=== PATIENT | female | born 2000 | race Two or more races ===

== ENCOUNTER 2023-04-30 11:27 | Inpatient (IN) ==
[2023-04-30] MEDS ORDERED: SODIUM CHLORIDE 0.9% 1,000 ML IV ONE ×2 (11:39→12:48)
[2023-04-30 11:53] LABS: Base Excess VBG -7.7 mEq/L; HCO3 VBG 18 mmol/L; Oxygen Saturation VBG 90.3 %; PCO2 VBG 34 mmHg (38-50); PO2 VBG 65 mmHg; pH VBG 7.32 (7.36-7.41)
[2023-04-30 11:57] LABS: Basophils # (auto) 0.08 K/uL (0.00-0.20); Basophils % (auto) 0.9 %; Eosinophils # (auto) 0.42 K/uL (0.00-0.50); Eosinophils % (auto) 4.7 %; Hemoglobin 14.7 g/dl (12.0-16.0); Immature Granulocytes # (auto) 0.05 K/uL (0.01-0.20); Immature Granulocytes % (auto) 0.6 %; Lymphocytes # (auto) 3.08 K/uL (1.20-3.40); Lymphocytes % (auto) 34.3 %; Mean Corpuscular Hemoglobin 31.3 pg (25.0-34.0); Mean Corpuscular Hgb Conc 37.7 g/dL (32.0-36.0); Mean Platelet Volume 12.8 fL (9.4-12.4); Monocytes # (auto) 0.44 K/uL (0.11-0.59); Monocytes % (auto) 4.9 %; Neutrophils # (auto) 4.91 K/uL (1.40-6.50); Neutrophils % (auto) 54.6 %; Platelet Count 263 K/uL (130-400); RDW Coefficient of Variation 12.1 % (11.5-14.5); RDW Standard Deviation 36.3 fL (36.4-46.3); White Blood Count 8.98 K/ul (4.8-10.8)
[2023-04-30 12:39] LABS: Alanine Aminotransferase 13 U/L (7-52); Albumin Globulin Ratio 1.5 (0.9-2); Albumin Level 4.3 gm/dl (3.4-5.0); Alkaline Phosphatase 76 U/L (34-104); BUN Creatinine Ratio 11.5 (10-20); Bilirubin,Total 0.4 mg/dl (0.2-1.0); Blood Urea Nitrogen 9 mg/dl (6-23); Calcium 9.2 mg/dl (8.6-10.3); Carbon Dioxide 17 mmol/L (21-32); Chloride 92 mmol/L (98-107); Creatinine Clr Calc Pharmacy 117.3 ml/min; Est GFR (African American) 124.2 ml/min; Est GFR (Non-African American) 107.2 ml/min; Globulin 2.9 gm/dl (2.5-4.0); Glucose 618 mg/dl (70-99(Fasting)); Total Protein 7.2 gm/dl (6.0-8.3)
[2023-04-30] MEDS ORDERED: NovoLIN-R INSULIN PER UNIT CHARGE IV STA (12:48)
--- NOTE | 2023-04-30 12:55 | Emergency Department Note ---
Impression & Plan Acute hyperglycemia, DKA (diabetic ketoacidosis) ED Provider Note NAME: CRISTIANO WHITE AGE: 22 SEX: F : 2000 ARRIVES VIA: Walk-In INFORMANT: Patient, ED PROVIDER(S): Alonso Rose DO CHIEF COMPLAINT: Elevated blood sugar HPI: The patient is a 22-year-old female who presented to the emergency department at the request of her primary care physician. The patient is a history of prediabetes. She had some outpatient lab work which revealed her blood sugar was very high. She was told to go to the emergency department for further evaluation. She does complain of polyuria and polydipsia. She denies having any fever or cough. She denies having any chest pain or abdominal pain. She states that she is currently on her menses. ROS: See above HPI for pertinent positives & negatives. A total of 10 systems reviewed and were otherwise negative. PAST MEDICAL HISTORY: See Below PAST SURGICAL HISTORY: See Below FAMILY HISTORY: See Below SOCIAL HISTORY: See Below HOME MEDICATIONS: See Below ALLERGIES: See Below VITALS: See Below PHYSICAL EXAMINATION: GENERAL: Patient is awake alert in no acute distress patient is resting comfortably and showing no signs of anxiety EYES: The conjunctivae are clear. The pupils are round and reactive. EARS, NOSE, MOUTH AND THROAT: The nose is without any evidence of any deformity. NECK: The neck is nontender and supple. RESPIRATORY: Normal respiratory effort is noted there is no evidence of wheezing rhonchi or rales CARDIOVASCULAR: Regular rate and rhythm noted there no murmurs rubs or gallops normal S1 normal S2. GASTROINTESTINAL: The abdomen is soft. Abdomen is nontender. MUSCULOSKELETAL/EXTREMITIES: There is no evidence of gross deformity full range of motion is noted in the hips and shoulders. SKIN: There is no obvious evidence of any rash. There are no petechiae, pallor or cyanosis noted. NEUROLOGIC: Patient is awake alert and oriented x3 MEDICAL DECISION MAKING: The patient is a 22-year-old female who is a history of borderline diabetes who presented to the emergency department because of abnormal labs. Her abnormal labs were reviewed she had a very elevated triglyceride as well as an elevated hemoglobin A1c. Blood sugar was elevated in the emergency department today. She does have an anion gap with a slight acidosis. She was treated with IV fluids and IV insulin. She was reevaluated multiple times. I discussed the patient's laboratory results with her. She does not have a history of taking any medications for diabetes. She does not take any medication for high triglycerides. Her condition improved after IV fluids and IV insulin. I discussed her condition [facility] Given that she has no set up follow-up and has no history of diabetes medications I feel she may be a better candidate for inpatient management. Triage Nursing notes reviewed. Prior medical records reviewed. The patient's labs for the [employer] system reviewed. Vital Signs: reviewed and remarkable for no significant abnormalities Differential diagnosis: Infection, dehydration, metabolic abnormality, hypo/hyperglycemia, electrolyte disturbance, anemia, hypoxia, cardiac sources, intracerebral event, toxicologic, neurologic, as well as other pathologies. ER treatment provided: See below Diagnostics interpreted by me: ECG: none Cardiac Monitoring: An order was placed for continuous cardiac monitoring. The monitor shows a rate of 88 bpm with sinus rhythm. Laboratory studies: As stated above and show below. Imaging studies: See below. Consultation(s): I discussed this case with Michelle who is [facility]. Past Med/Surg History Medical History Pre-diabetes Per patient diagnosed at a young age No significant medical problems Surgical History History of tonsillectomy Family History Denies family history of Ovarian cancer Breast cancer Colorectal cancer Social History Smoking Status: Never smoker Do You Dip or Chew Tobacco: No; Preferred Language: Icelandic Feels Safe at Home: Yes Allergies Allergies Allergy/AdvReac Type Severity Reaction Status Date / Time No Known Allergies Allergy Verified 10/11/20 14:45 Results & Data (ED) Vital Signs Vital Signs - 24 hr 04/30/23 11:28 04/30/23 12:45 04/30/23 12:49 Temperature 36.5 C Temperature Source Temporal Artery Scan Pulse Rate 85 76 Pulse Rate [Left Finger] 78 Pulse Rhythm [Left Finger] Regular Pulse Strength [Left Finger] Normal Respiratory Rate 20 18 Respiratory Effort / Characteristics Non-Labored Spontaneous Respiratory Depth Normal Respiratory Pattern Regular Blood Pressure 163/93 H Blood Pressure [Right Arm] 135/79 Blood Pressure Mean 116 Blood Pressure Mean [Right Arm] 97 Blood Pressure Position [Right Arm] Sitting Pulse Oximetry 97 98 Oxygen Delivery Method Room Air Sepsis Recent Fever Within 48 Hours No Sepsis New/Unexplained Change in Mental Status No Sepsis Action Taken by Nursing No Action Required 04/30/23 15:21 Temperature Temperature Source Pulse Rate Pulse Rate [Left Finger] 88 Pulse Rhythm [Left Finger] Pulse Strength [Left Finger] Respiratory Rate 16 Respiratory Effort / Characteristics Non-Labored Respiratory Depth Normal Respiratory Pattern Blood Pressure Blood Pressure [Right Arm] 118/74 Blood Pressure Mean Blood Pressure Mean [Right Arm] 88 Blood Pressure Position [Right Arm] Pulse Oximetry 98 Oxygen Delivery Method Room Air Sepsis Recent Fever Within 48 Hours Sepsis New/Unexplained Change in Mental Status Sepsis Action Taken by [facility] Medications Current Medication List: was personally reviewed by me Laboratory Data Attestation: I reviewed the patient's lab results. 04/30/23 11:37 04/30/23 14:12 Lab Results 04/30/23 04/30/23 04/30/23 Range/Units 11:37 13:00 13:53 WBC 8.98 (4.8-10.8) K/ul RBC 4.70 (4.20-5.40) M/uL Hgb 14.7 (12.0-16.0) g/dl Hct 39.0 (37.0-47.0) % MCV 83.0 (80.0-100.0) fL MCH 31.3 (25.0-34.0) pg MCHC 37.7 H (32.0-36.0) g/dL RDW Std Deviation 36.3 L (36.4-46.3) fL RDW Coeff of Robert 12.1 (11.5-14.5) % Plt Count 263 (130-400) K/uL MPV 12.8 H (9.4-12.4) fL Immature Gran % (Auto) 0.6 % Neut % (Auto) 54.6 % Lymph % (Auto) 34.3 % Blaine % (Auto) 4.9 % Eos % (Auto) 4.7 % Baso % (Auto) 0.9 % Neut # (Auto) 4.91 (1.40-6.50) K/uL Lymph # (Auto) 3.08 (1.20-3.40) K/uL Blaine # (Auto) 0.44 (0.11-0.59) K/uL Eos # (Auto) 0.42 (0.00-0.50) K/uL Baso # (Auto) 0.08 (0.00-0.20) K/uL Immature Gran # (Auto) 0.05 (0.01-0.20) K/uL VBG pH 7.32 L (7.36-7.41) VBG pCO2 34 L (38-50) mmHg VBG pO2 65 mmHg VBG HCO3 18 mmol/L VBG O2 Saturation 90.3 % VBG Base Excess -7.7 mEq/L Sodium TNP 126 L Potassium TNP TNP Chloride 92 L (98-107) mmol/L Carbon Dioxide 17 L (21-32) mmol/L Anion Gap TNP BUN 9 (6-23) mg/dl Creatinine 0.78 (0.6-1.2) mg/dl Est Cr Clr Drug Dosing 117.3 ml/min Est GFR ( Amer) 124.2 ml/min Est GFR (Non-Af Amer) 107.2 ml/min BUN/Creatinine Ratio 11.5 (10-20) Glucose 618 H* (70-99(Fasting)) mg/dl POC Glucose 295 H (70-99) mg/dl Calcium 9.2 (8.6-10.3) mg/dl Magnesium TNP TNP Total Bilirubin 0.4 (0.2-1.0) mg/dl AST TNP TNP ALT 13 (7-52) U/L Alkaline Phosphatase 76 (34-104) U/L Total Protein 7.2 (6.0-8.3) gm/dl Albumin 4.3 (3.4-5.0) gm/dl Globulin 2.9 (2.5-4.0) gm/dl Albumin/Globulin Ratio 1.5 (0.9-2) HCG, Qual Negative (Negative) 04/30/23 Range/Units 14:12 WBC (4.8-10.8) K/ul RBC (4.20-5.40) M/uL Hgb (12.0-16.0) g/dl Hct (37.0-47.0) % MCV (80.0-100.0) fL MCH (25.0-34.0) pg MCHC (32.0-36.0) g/dL RDW Std Deviation (36.4-46.3) fL RDW Coeff of Robert (11.5-14.5) % Plt Count (130-400) K/uL MPV (9.4-12.4) fL Immature Gran % (Auto) % Neut % (Auto) % Lymph % (Auto) % Blaine % (Auto) % Eos % (Auto) % Baso % (Auto) % Neut # (Auto) (1.40-6.50) K/uL Lymph # (Auto) (1.20-3.40) K/uL Blaine # (Auto) (0.11-0.59) K/uL Eos # (Auto) (0.00-0.50) K/uL Baso # (Auto) (0.00-0.20) K/uL Immature Gran # (Auto) (0.01-0.20) K/uL VBG pH (7.36-7.41) VBG pCO2 (38-50) mmHg VBG pO2 mmHg VBG HCO3 mmol/L VBG O2 Saturation % VBG Base Excess mEq/L Sodium Potassium 4.1 Chloride (98-107) mmol/L Carbon Dioxide (21-32) mmol/L Anion Gap BUN (6-23) mg/dl Creatinine (0.6-1.2) mg/dl Est Cr Clr Drug Dosing ml/min Est GFR ( Amer) ml/min Est GFR (Non-Af Amer) ml/min BUN/Creatinine Ratio (10-20) Glucose (70-99(Fasting)) mg/dl POC Glucose (70-99) mg/dl Calcium (8.6-10.3) mg/dl Magnesium 1.7 Total Bilirubin (0.2-1.0) mg/dl AST 16 ALT (7-52) U/L Alkaline Phosphatase (34-104) U/L Total Protein (6.0-8.3) gm/dl Albumin (3.4-5.0) gm/dl Globulin (2.5-4.0) gm/dl Albumin/Globulin Ratio (0.9-2) HCG, Qual (Negative) Administered Medications Discontinued Medications Sodium Chloride (Nss) 1,000 mls @ 999 mls/hr IV .Q1H1M ONE Stop: 04/30/23 12:39 Last Infusion: 04/30/23 12:46 Dose: Infused Documented By: Admin: 04/30/23 11:45 Dose: 999 mls/hr Documented By: DAYSI Sodium Chloride (Nss) 1,000 mls @ 999 mls/hr IV .Q1H1M ONE Stop: 04/30/23 13:48 Last Infusion: 04/30/23 15:52 Dose: Infused Documented By: Admin: 04/30/23 12:59 Dose: 999 mls/hr Documented By: RAVI Insulin Human Regular (Novolin-R Insulin Per Unit Charge) 6 units IV NOW STA Stop: 04/30/23 12:49 Last Admin: 04/30/23 12:57 Dose: 6 units Documented By: RAVI Co-signed By: SERGIO Discharge Plan Visit Data Chief Complaint: Hyperglycemia Stated Complaint: HYPERGLYCEMIA ED Provider: Alonso Rose Discharge Problem: Acute hyperglycemia, DKA (diabetic ketoacidosis) Patient Disposition: Being Evaluated by Hospitalist Forms Stand Alone Forms: [facility] Referrals Referrals: PCP,NO [Primary Care Provider] - Discharge Problem: DKA (diabetic ketoacidosis) Qualifiers: Diabetes mellitus type: type 1 Diabetes mellitus complication detail: without coma Qualified Code(s): E10.10 - Type 1 diabetes mellitus with ketoacidosis without coma
[2023-04-30 13:15] LABS: Pregnancy Test, Serum Negative (Negative)
[2023-04-30 13:44] LABS: Sodium 126 mmol/L (136-145)
[2023-04-30 14:49] LABS: Magnesium 1.7 mg/dl (1.7-2.4); Potassium 4.1 mmol/L (3.5-5.1)
[2023-04-30] MEDS ORDERED: PHARMACY GLYCEMIC MGMT CONSULT PRN (16:39)
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
[2023-04-30] MEDS ORDERED: NSS + 20MEQ KCL 20 MEQ/1,000 ML BAG IV SCH (17:45)
[2023-04-30] MEDS ORDERED: ACETAMINOPHEN 325 MG TAB PO PRN (19:39)
[2023-04-30] MEDS ORDERED: CARBOHYDRATES FOR HYPOGLYCEMIA PO PRN (20:00)
[2023-04-30] MEDS ORDERED: DEXTROSE 50% 50 ML SYRINGE IV PRN (20:00)
[2023-04-30] MEDS ORDERED: GLUCAGON FOR INJ 1 MG VIAL IM PRN (20:00)
[2023-04-30] MEDS ORDERED: GLUCOSE 10 TAB/TUBE PO PRN (20:00)
[2023-04-30] MEDS ORDERED: GLUCOSE 40% GEL 15 GM TUBE PO PRN (20:00)
[2023-04-30] MEDS: ATORVASTATIN 40 MG TAB PO SCH (20:32)
[2023-04-30 20:35] LABS: Anion Gap 13 (3-11); BUN Creatinine Ratio 11.5 (10-20); Blood Urea Nitrogen 6 mg/dl (6-23); Calcium 7.7 mg/dl (8.6-10.3); Carbon Dioxide 17 mmol/L (21-32); Chloride 102 mmol/L (98-107); Creatinine Clr Calc Pharmacy 175.9 ml/min; Est GFR (African American) > 150.0 ml/min; Est GFR (Non-African American) 134.7 ml/min; Glucose 234 mg/dl (70-99(Fasting)); Lipase 19 U/L (11-82); Sodium 132 mmol/L (136-145)
--- OUTSIDE RECORDS SUMMARY | 2023-04-30 20:53 | External Medical Summary ---
Author Name Unknown Address Unknown Organization [id number]:[facility] [place] [address] [place] [address] Laboratory Report Ordering Provider Test Date Status ZELALEM REED 04/29/2023 14:06:01 Final Observation Date Value Abnormality Reference (Units ) Status TSH 04/29/2023 14:06:01 1.86 0.27-4.20 (uIU/mL) Final Performing Location [facility] [place] [address] [address]
--- OUTSIDE RECORDS SUMMARY | 2023-04-30 20:53 | External Medical Summary ---
Author Name Unknown Address Unknown Organization [id number]:[facility]ORY [facility] [place] - [address] [place], [place] [address] Laboratory Report Ordering Provider Test Date Status FAM REEDFilomena 04/29/2023 14:06:01 Final Observation Date Value Abnormality Reference (Units ) Status LDL, (direct) 04/29/2023 14:06:01 160 Above high satya l <=129 (mg/dL) Final LDL Cholesterol Reference Ra nges (mg/dL):
<70 Target level for high risk ASCVD patient
<100 Optimal for general population
100-129 Near optimal for general population
130-159 Borderline high
160-189 High
>=190 Very high Performing Location LABORATORY [facility] - [address] [place], [place] [address]
--- OUTSIDE RECORDS SUMMARY | 2023-04-30 20:53 | External Medical Summary ---
Author Name Unknown Address Unknown Organization [id number]:[facility] [place] - [address] [facility] [address] Laboratory Report Ordering Provider Test Date Status FAM REEDFilomena 04/29/2023 14:06:01 Final Observation Date Value Abnormality Reference (Units ) Status HbA1C 04/29/2023 14:06:01 17.0 Above high normal 4. 0-5.6 (%) Final The use of HbA1c to monitor glycemic status is based on normal hemoglobin and HbA composition. This test should not be used in patients with abnormal hemoglobin that affects the half life of the red blood cell or the in vivo glycation rates. Glucose, estimated average 04/29/2023 14:06:01 441 Above high normal <126 (mg/dL) Pasquale noland Performing Location [facility] [place] - [address] [facility] [address]
--- OUTSIDE RECORDS SUMMARY | 2023-04-30 20:53 | External Medical Summary ---
Author Name Unknown Address Unknown Organization [id number]:[facility]ORY [facility] – [place] - [address] [place] [address] Laboratory Report Ordering Provider Test Date Status KATIUSKA SALDIVAR 04/29/2023 14:06:01 Final Observation Date Value Abnormality Reference (Units ) Status MYCODE SPECIMEN-LAV 04/29/2023 14:06:01 Freezing of extracted DNA, whole blood and/or serum. Final Performing Location LABORATORY [facility] [place] - [address] [facility] [address]
--- OUTSIDE RECORDS SUMMARY | 2023-04-30 20:53 | External Medical Summary | Summary of Care ---
Author Name Unknown Organization [facility] Address [address] [place] [address] Phone [phone] Care Team Providers Care Sterile Proc Tech Name Role Phone Yang Shah MD Primary Care Provider + Reason for Referral * Evaluate & Treat - Unlimited Visits (Within 10 days (routine)) - Pending Review Specialty Diagnoses / Procedures Referred By Jorden blake Referred To Contact Physical Therapy / Physical Medicine And Rehab Diagnoses Chronic back pain, unspecified back location, unspecified back pain laterality History of pelvic fracture History of tibial fracture History of vertebral fracture Yang Shah MD [address] [place] [address] Referral ID Status Reason Start Date Expiration Date Visits Requested Visits Authorized [id number] Pending Review Specialty Services Required 11/02/[phone] Question Answer Referral Priority Within 10 days (routine) Reason for Visit * Reason Onset Date Comments Referral 11/02/2022 Encounter Details Date Type Department Care Team Description 11/02/2022 Telephone [facility] [employer] [address] [place] [address] Yang Shah MD [address] [place] [address] Referral Allergies No known active allergiesdocumented as of this encounter (statuses as of 11/02/2022) Medications No known medicationsdocumented as of this encounter (statuses as of 11/02/2022) Active Problems Problem Noted Date Thyroid nodule 03/13/2022 History of tibial fracture 03/13/2022 History of pelvic fracture 03/13/2022 History of vertebral fracture 03/13/2022 Overview: T9 Fatty liver 03/13/2022 Recurrent major depressive disorder 05/31 Anxiety state 06/16/2021 Chronic back pain 06/16/2021 History of 2019 novel coronavirus diseas e (COVID-19) 05/27/2021 Menstruation, irregular 01/10/2020 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 documented as of this encounter (statuses as of 11/02/2022) Resolved Problems Problem Noted Date Resolved Date Food insecurity 01/06/2021 03/13/2022 Overview: Per [facility] Protocol Routine child health exam 05/02/20132018 ADVANCE DIRECTIVE INFORMATION 08/07/2010 Overview: Not applicable (under age of 18) documented as of this encounter (statuses as of 11/02/2022) Immunizations Name Administration Dates Next Due DTaP - Dipth/Tet/Acell Pertussis 004,08/18/2000,1999,10/14,1999 HIB 3 dose (Pedvax) 08/18/2000,1999,1999 HPV Vaccine, 4-Valent 04/01/2012,09/09/2011,07/31 Hepatitis B, 0-19 yrs 08/18/2000,1999,07/02 IPV - Polio Virus Vaccine (Inact) 2004,03/03/2000,1999,07/23 MMR - Measles/Mumps/Rubella Vaccine 01/21/2004,0 06/09/2000 Meningococcal Conjugate Vacc ine (Menactra/Menveo) 07/18/2015,08/28/2010 Pneumococcal Conjugate Vacci ne, 7 Valent 03/03/2000 Seasonal Influenza Intranasal 06/28/2014, 013 Seasonal Influenza, Quadriva lent, No Preserve, IM 04/23/2015 Seasonal Influenza, Split, I IV3, With Preserve, Inj 06/15/2012 TDAP (age 11 and older)(Adacel) 08/28/2010 Varicella Vaccine (Chicken Pox) 12/07/2007,06/09 documented as of this encounter Social History Tobacco Use Types Packs/Day Years Used Date Smoking Tobacco: Never Smokeless Tobacco: Never Alcohol Use Standard Drinks/Week Comments No 0 (1 standard drink = 0.6 oz pur e alcohol) Food Insecurity Answer Date Recorded Within the past 12 months, y ou worried that your food would run out before you got money to buy more. Sometimes true 2018 Within the past 12 months, t he food you bought just didn't last and you didn't have money to get more. Never true Sex Assigned at Date Recorded Not on file Job Start Date Occupation Industry Not on file Not on file Not on file documented as of this encounter Miscellaneous Notes * Telephone Encounter - HALEIGH Bui - 11/02/2022 6:36 PM EDT Printed and faxed * Telephone Encounter - Yang Shah MD - 11/02/2022 6:32 PM EDT PT referral signed. Yang Shah MD * Telephone Encounter - HALEIGH Contreras - 11/02/2022 4:20 PM EDT Has the patient been seen for this problem? (Y/N)?: Yes If No, an appt needs to be scheduled before a referral will be placed (exception: proceed with referral request if referral request is for a yearly routine appointment with speciality) Patient Name: Chace Hsu Patient Primary care provider: Yang Shah MD Does this need to be an insurance referral (Y/N)?: No If Yes, does the insurance referral need to be placed into the [facility] system? Name of preferred specialist: [facility] Type of specialist: Physical therapy Location of specialist: [facility] [address] Specialist's Phone #: [phone] Specialist's Fax #: [phone] Reason for visit: Therapy session Date of visit: documented in this encounter Plan of Treatment Upcoming Encounters Date Type Specialty Care Team Description 11/05/2022 Telemedicine Family Medicine Yang Shah MD [address] [place] [address] Scheduled Referrals Name Type Priority Associated Diagnoses Orde r Schedule PHYSICAL THERAPY REFERRAL OP Referral Within 10 days (routine) Chronic back pain, unspecified back location, unspecified back pain laterality History of pelvic fracture History of tibial fracture History of vertebral fracture Ordered: 11/02/2022 Health Maintenance Due Date Last Done Comments COVID-19 Vaccine (#1) 1999 HIV Screening 2014 Hepatitis C Screening 2017 Gonorrhea / Chlamydia Screen 10/08/2018 10/08/2017 Pap Smear 2020 Depression Screening, Annual for Pts 12 and Over 05/19/2020 05/19/2019 DTaP,Tdap,and Td Vaccines (7 - Td or Tdap) 08/28/2020 08/28/2010, 01/21/2004, 08/18/2000, Additional history exists Influenza Vaccine (FLU shot) (Season Ended) 2023 04/23/2015, 06/28/2014, 06/28/2014, Additional history exists Hepatitis B Completed 08/18/2000, 09/28, 1999 GARDASIL-HPV IMMUNIZATION SERIES Completed 04/01/2012, 09/09/2011, 08/28/2010 MENINGOCOCCAL (MENACTRA/MENVEO) Completed 07/18/2015, 08/28/2010 Pneumococcal Vaccine: Pediatrics (0 to 5 Years) and At-Risk Patients (6 to 64 Years) Aged Out No longer eligible based on patient's age to complete this topic documented as of this encounter Medical Devices Not on filedocumented as of this encounter Visit Diagnoses Diagnosis Chronic back pain, unspecified back location, unspecified back pain laterality- Primary History of pelvic fracture Personal history of traumatic fracture History of tibial fracture Personal history of traumatic fracture History of vertebral fracture Personal history of traumatic fracture documented in this encounter Care Teams Sterile Proc Tech Relationship Specialty Start Date End Date Yang Shah MD [address] [facility] [place] [address] PCP - General Family Medicine 03/27/19 documented as of this encounter
--- OUTSIDE RECORDS SUMMARY | 2023-04-30 20:53 | External Medical Summary | Summary of Care ---
Author Name Unknown Organization [facility] Address [address] [place] [address] Phone [phone] Care Team Providers Care Consulting Practice Manager Name Role Phone Yang Shah MD Primary Care Provider + Reason for Visit * Reason Comments Follow Up Encounter Details Date Type Department Care Team Description 11/05/2022 [facility] [place] [address] [place] [address] Yang Shah MD [address] [place] [address] Follow-up examination*; Chronic back pain, unspecified back location, unspecified back pain laterality; History of vertebral fracture; History of tibial fracture; History of pelvic fracture; Thyroid nodule; Fatty liver; Recurrent major depressive disorder, remission status unspecified (HCC); Anxiety state Allergies No known active allergiesdocumented as of this encounter (statuses as of 11/05/2022) Medications No known medicationsdocumented as of this encounter (statuses as of 11/05/2022) Active Problems Problem Noted Date Thyroid nodule [...] as of this encounter (statuses as of 11/05/2022) Resolved Problems Problem Noted Date Resolved Date Food insecurity 01/06/2021 03/13/2022 Overview: Per [facility] Protocol Routine child health exam 05/02/20132018 ADVANCE DIRECTIVE INFORMATION 08/07/2010 Overview: Not applicable (under age of 18) documented as of this encounter (statuses as of 11/05/2022) Immunizations Name Administration Dates Next Due DTaP [...] on file documented as of this encounter Progress Notes * Yang Shah MD - 11/05/2022 5:33 PM EDT FAMILY MEDICINE VIDEO TELEMEDICINE VISIT [facility] - FAMILY MEDICINE Date: 11/05/2022 Time: 5:33 PM Patient: Chace Hsu : 2000 CHIEF COMPLAINT: Chief Complaint Patient presents with Follow Up HISTORY OF PRESENT ILLNESS: Chace Hsu is a 22 year old female who was is being evaluated for f/u by video telemedicine visit. In light of the state of emergency with the Coronavirus (COVID-19) pandemic, a video telemedicine visit was opted to safely assess the patient and reduce their risk of exposure to the virus. I was in a hospital or clinic location. Patient was at home. After connecting through televideo, the patient was identified by 2 unique identifiers (name and date of ). 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 Methods to assure confidentiality were taken. Patient acknowledged consent and understanding of privacy and security of the telemedicine visit, and gave permission to have a telemedicine presenter stay in the room in order to assist with the history and to conduct theexam as needed. I informed the patient that I have reviewed their record in [facility] and presented the opportunity for them to ask any questions regarding the visit today. The patient agreed to participat e. 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 Past Medical History: Diagnosis Date Anxiety state 06/16/2021 Fatty liver 03/13/2022 History of 2019 novel coronavirus disease (COVID-19) 05/27/2021 History of pelvic fracture 03/13/2022 History of tibial fracture 03/13/2022 History of vertebral fracture 03/13/2022 T9 Menstruation, irregular 01/10/2020 Recurrent major depressive disorder (HCC) 06/16/2021 Past Surgical History: Procedure Laterality Date IR BIOPSY 06/12/2022 NONE No outpatient medications have been marked as taking for the 11/05/22 encounter (Telemedicine) with Yang Shah MD. Review of patient's allergies indicates: No Known Allergies Social History Tobacco Use Smoking status: Never Smokeless tobacco: Never Substance Use Topics Alcohol use: No Drug use: No Family History Problem Relation Age of Onset No Known Problems Mother No Known Problems Father Heart disease Grandfather (Maternal) CAD, CABG Diabetes Grandfather (Maternal) Hypertension Grandfather (Maternal) REVIEW OF SYSTEMS: Constitutional: (-) fever, chills, sweats, or weight loss Cardiovascular: (-) no chest pain, dyspnea, syncope, or palpitations Pulmonary: (-) no cough, wheezing, or shortness of breath Abdominal/GI: (-) no pain, heartburn, dysphagia, bleeding, change in bowel habits, nausea or vomiting Musculoskeletal: + arthralgia Psychiatry: + depression, anxiety, well-controlled, no SI, no HI PHYSICAL EXAMINATION: A physical examination was not performed today being this is a video telemedicine visit. ASSESSMENT/PLAN: Chace Hsu is a 22 year old female, who is being evaluated for f/u via video telemedicine visit. -Patient with medical history as noted, doing well, continue with PT, f/u with specialists as scheduled -Encouraged healthy lifestyle, low fat diet, low sugar diet, and exercise -Pt was advised to ask questions during their visit today, pt's questions answered, pt understands and is agreeable with plan of care -Visit Disposition: Routine follow-up -Return in Apr 2023 for f/u, return PRN Follow-up examination (Primary) Chronic back pain, unspecified back location, unspecified back pain laterality History of vertebral fracture History of tibial fracture History of pelvic fracture Thyroid nodule Fatty liver Recurrent major depressive disorder, remission status unspecified (HCC) Anxiety state Follow Up: Return in about 6 months (around 05/07/2023), or if symptoms worsen or fail to improve, for Follow-up. | For: Follow-up | Check-out note: F/u in 5-6 months, around , for when she has break from school. The total duration of this video telemedicine visit was 10 minutes. Yang Shah MD [facility] [address] [place] [address] documented in this encounter Plan of Treatment Health Maintenance Due Date Last Done Comments [...] as of this encounter Visit Diagnoses Diagnosis Follow-up examination- Primary Unspecified follow-up examination Chronic back pain, unspecified back location, unspecified back pain laterality History of vertebral fracture Personal history of traumatic fracture History of tibial fracture Personal history of traumatic fracture History of pelvic fracture Personal history of traumatic fracture Thyroid nodule Nontoxic uninodular goiter Fatty liver Other chronic nonalcoholic liver disease Recurrent major depressive disorder, remission status unspecified (HCC) Anxiety state Anxiety state, unspecified documented in this encounter Care Teams Consulting Practice Manager Relationship Specialty Start Date End Date Yang Shah MD [address] [place] [address] PCP - General Family Medicine 03/27/19 documented as of this encounter"
--- OUTSIDE RECORDS SUMMARY | 2023-04-30 20:53 | External Medical Summary ---
Author Name Unknown Address Unknown Organization [id number]:[facility] [place] [place] [address] Laboratory Report Ordering Provider Test Date Status ZELALEM REED 04/29/2023 14:06:01 Final Observation Date Value Abnormality Reference (Units ) Status WBC, Total 04/29/2023 14:06:01 9.78 4.00-10.8 0 (K/uL) Final RBC 04/29/2023 14:06:01 4.84 3.85-5.15 (M/uL) Final Hemoglobin 04/29/2023 14:06:01 15.4 Above high normal 1 2.0-15.3 (g/dL) Final HCT 04/29/2023 14:06:01 42.0 36.0-45.2 (%) Final MCV 04/29/2023 14:06:01 86.8 81.5-97.5 (fL) Final MCH 04/29/2023 14:06:01 31.8 27.0-34.0 (pg) Final MCHC 04/29/2023 14:06:01 36.7 32.0-36.0 (g/dL) Final RDW 04/29/2023 14:06:01 12.6 11.5-15.5 (%) Final Platelets 04/29/2023 14:06:01 286 140-400 (K /uL) Final MPV 04/29/2023 14:06:01 12.5 6.6-11.1 ( fL) Final Performing Location [facility] [place] [address]
--- OUTSIDE RECORDS SUMMARY | 2023-04-30 20:53 | External Medical Summary ---
Author Name Unknown Address Unknown Organization [id number]:[facility] [place] [address] Laboratory Report Ordering Provider Test Date Status DEREKZELALEM Pastor 04/29/2023 14:06:01 Final Observation Date Value Abnormality Reference (Units ) Status Nucleated erythrocytes/100 leukocytes [Ratio] in Blood by Automated count 04/29/2023 14:06:01 Final Performing Location [facility] [place] [address]
--- OUTSIDE RECORDS SUMMARY | 2023-04-30 20:53 | External Medical Summary ---
Author Name Unknown Address Unknown Organization K01:[facility] [place] - [address] [place] [address] [place] [address] Laboratory Report Ordering Provider Test Date Status KATIUSKA SALDIVAR 04/29/2023 14:06:01 Final Observation Date Value Abnormality Reference (Units ) Status MYCODE SPECIMEN-SST 04/29/2023 14:06:01 Freezing of extracted DNA, whole blood and/or serum. Final Performing Location [facility] [place] [facility] [address] [facility] [address]
--- OUTSIDE RECORDS SUMMARY | 2023-04-30 20:53 | External Medical Summary | Summary of Care ---
Author Name Unknown Organization [facility] Address [address] [place] [address] Phone [phone] Care Team Providers Care Acoustic Intelligence Specialist Name Role Phone Yang Shah MD Primary Care Provider + Reason for Visit * Reason Comments Follow Up Encounter Details Date Type Department Care Team (Late st Contact Info) Description 04/28/2023 3:20 PM [facility], [place] [address] [place] [address] Yang Shah MD [address] [place] [address] Follow-up examination*; Loss of weight; Polydipsia; Dry mouth; Polyuria; Chronic back pain, unspecified back location, unspecified back pain laterality; History of vertebral fracture; History of pelvic fracture; History of tibial fracture; Thyroid nodule; Fatty liver; Menstruation, irregular; Recurrent major depressive disorder, remission status unspecified (HCC); Anxiety state; Abnormal glucose Allergies No known active allergiesdocumented as of this encounter (statuses as of 04/28/2023) Medications No known medicationsdocumented as of this encounter (statuses as of 04/28/2023) Active Problems Problem Noted Date Diagnosed Date Abnormal glucose 04/28/2023 Thyroid nodule 03/13/2022 History of tibial fracture 03/13/2022 History of pelvic fracture 03/13/2022 History of vertebral fracture 03/13/2022 Overview: T9 Fatty liver 03/13/2022 Recurrent major depressive disorder 06/16/2021 Anxiety state 06/16/2021 Chronic back pain 06/16/2021 History of 2019 novel coronavirus disease (COVID -19) 05/27/2021 Menstruation, irregular 01/10/2020 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 documented as of this encounter (statuses as of 04/28/2023) Resolved Problems Problem Noted Date Diagnosed Date Resolved Date Food insecurity 01/06/2021 03/13/2022 Overview: Per [facility] Protocol Routine child health exam 05/02/2013 ADVANCE DIRECTIVE INFORMATION 08/07/2010 03/13/2022 Overview: Not applicable (under age of 18) documented as of this encounter (statuses as of 04/28/2023) Immunizations Name Administration Dates Next Due DTaP Dipth/Tet/Acell Pertussis (Infanrix), Peds 01/21/2004,08/18/2000,1999,10/14,1999 HIB PRP-OMP, 3 dose (Pedvax) 08/18/2000,10/15/19 00,1999 HPV Vaccine, 4-Valent 04/01/2012,09/09/2011,07/31 Hepatitis B, 0-19 [...] drink = 0.6 oz pur e alcohol) PHQ-2 Answer Date Recorded PHQ-2 Score 2 05/19/2019 Hunger Vital Sign Answer Date Recorded Worried About Running Out of Food in the Last Ye ar Sometimes true 05/19/2019 Ran Out of Food in the Last Year Never true 05/19/2019 Sex and Gender Information Value Date Recorded Sex Assigned at Not on file Gender Identity Not on file Sexual Orientation Not on file Job Start Date Occupation Industry Not on file Not on file Not on file documented as of this encounter Progress Notes * Yang Shah MD - 04/28/2023 3:44 PM EST FAMILY MEDICINE VIDEO TELEMEDICINE VISIT [facility] Date: 04/28/2023 Time: 3:44 PM Patient: Chace Hsu : 2000 CHIEF COMPLAINT: Chief Complaint Patient presents with Follow Up HISTORY OF PRESENT ILLNESS: Chcae Hsu is a 22 year old female who was is being evaluated for f/u by video telemedicine visit. I was in a hospital or clinic location. Patient was at home. After connecting through televideo, the patient was identified by 2 unique identifiers (name and date of ). 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 Methods to assure confidentiality were taken. Patient acknowledged consent and understanding of privacy and security of the telemedicine visit, and gave permission to have a telemedicine presenter stay in the room in order to assist with the history and to conduct the exam as needed. I informed the patient that I have reviewed their record in [facility] and presented the opportunity for them to ask any questions regarding the visit today. The patient agreed to participate. 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 Past Medical History: Diagnosis Date Anxiety state 06/16/2021 Fatty liver 03/13/2022 History of 2019 novel coronavirus disease (COVID-19) 05/27/2021 History of pelvic fracture 03/13/2022 History of tibial fracture 03/13/2022 History of vertebral fracture 03/13/2022 T9 Menstruation, irregular 01/10/2020 Recurrent major depressive disorder (HCC) 06/16/2021 Past Surgical History: Procedure Laterality Date IR BIOPSY 06/12/2022 No outpatient medications have been marked as taking for the 04/28/23 encounter (Telemedicine) Yang Stewart MD. Review of patient's allergies indicates: No Known Allergies Social History Tobacco Use Smoking status: Never Smokeless tobacco: Never Substance Use Topics Alcohol use: No Drug use: No Family History Problem Relation Age of Onset No Known Problems Mother No Known Problems Father Heart disease Grandfather (Maternal) CAD, CABG Diabetes Grandfather (Maternal) Hypertension Grandfather (Maternal) REVIEW OF SYSTEMS: Constitutional: + weight loss, (-) fever, chills, sweats Cardiovascular: (-) no chest pain, dyspnea, syncope, or palpitations Pulmonary: (-) no cough, wheezing, or shortness of breath Abdominal/GI: (-) no pain, heartburn, dysphagia, bleeding, change in bowel habits, nausea or vomiting Endocrine: + polyuria, polydipsia Psychiatry: (-) no depression or anxiety PHYSICAL EXAMINATION: A physical examination was not performed today being this is a video telemedicine visit. ASSESSMENT/PLAN: Chace Hsu is a 22 year old female, who is being evaluated for f/u via video telemedicine visit. -Patient with medical history as noted, concerned about her 20 pound weight loss in the past few months accompanied with polyuria, polydipsia, and dry mouth, advised checking routine labs, r/o new onset diabetes, will r/o thyroid dysfunction, will check urinary testing to r/o UTI, call if pt has new or worsening symptoms, red flag symptoms discussed, further recommendations pending results -Encouraged healthy lifestyle, low fat diet, low sugar diet, and exercise -Pt was advised to ask questions during their visit today, pt's questions answered, pt understands and is agreeable with plan of care -Visit Disposition: Routine follow-up -Return in 5 months for f/u visit, repeat labs 1-2 weeks prior to next visit, return PRN Follow-up examination (Primary) Loss of weight - CBC WITH WBC DIFFERENTIAL; Future; Expected date: 04/28/2023 - COMPREHENSIVE METABOLIC PANEL; Future; Expected date: 04/28/2023 - TSH WITH FREE T4 IF INDICATED; Future; Expected date: 04/28/2023 - HEMOGLOBIN A1C; Future; Expected date: 04/28/2023 - LIPASE; Future; Expected date: 04/28/2023 Polydipsia - CBC WITH WBC DIFFERENTIAL; Future; Expected date: 04/28/2023 - COMPREHENSIVE METABOLIC PANEL; Future; Expected date: 04/28/2023 - TSH WITH FREE T4 IF INDICATED; Future; Expected date: 04/28/2023 - HEMOGLOBIN A1C; Future; Expected date: 04/28/2023 - LIPASE; Future; Expected date: 04/28/2023 - URINALYSIS, REFLEX TO MICROSCOPIC; Future; Expected date: 04/28/2023 - CULTURE, URINE, QUANTITATIVE; Future; Expected date: 04/28/2023 Dry mouth - CBC WITH WBC DIFFERENTIAL; Future; Expected date: 04/28/2023 - COMPREHENSIVE METABOLIC PANEL; Future; Expected date: 04/28/2023 - TSH WITH FREE T4 IF INDICATED; Future; Expected date: 04/28/2023 - HEMOGLOBIN A1C; Future; Expected date: 04/28/2023 - LIPASE; Future; Expected date: 04/28/2023 Polyuria - CBC WITH WBC DIFFERENTIAL; Future; Expected date: 04/28/2023 - COMPREHENSIVE METABOLIC PANEL; Future; Expected date: 04/28/2023 - TSH WITH FREE T4 IF INDICATED; Future; Expected date: 04/28/2023 - HEMOGLOBIN A1C; Future; Expected date: 04/28/2023 - LIPASE; Future; Expected date: 04/28/2023 - URINALYSIS, REFLEX TO MICROSCOPIC; Future; Expected date: 04/28/2023 - CULTURE, URINE, QUANTITATIVE; Future; Expected date: 04/28/2023 Chronic back pain, unspecified back location, unspecified back pain laterality History of vertebral fracture History of pelvic fracture History of tibial fracture Thyroid nodule - CBC WITH WBC DIFFERENTIAL; Future; Expected date: 04/28/2023 - COMPREHENSIVE METABOLIC PANEL; Future; Expected date: 04/28/2023 - LIPID PANEL WITH DIRECT LDL IF TG IS HIGH; Future; Expected date: 04/28/2023 - TSH WITH FREE T4 IF INDICATED; Future; Expected date: 04/28/2023 Fatty liver Menstruation, irregular - CBC WITH WBC DIFFERENTIAL; Future; Expected date: 04/28/2023 - COMPREHENSIVE METABOLIC PANEL; Future; Expected date: 04/28/2023 - TSH WITH FREE T4 IF INDICATED; Future; Expected date: 04/28/2023 Recurrent major depressive disorder, remission status unspecified (HCC) - CBC WITH WBC DIFFERENTIAL; Future; Expected date: 04/28/2023 - COMPREHENSIVE METABOLIC PANEL; Future; Expected date: 04/28/2023 - TSH WITH FREE T4 IF INDICATED; Future; Expected date: 04/28/2023 Anxiety state - CBC WITH WBC DIFFERENTIAL; Future; Expected date: 04/28/2023 - COMPREHENSIVE METABOLIC PANEL; Future; Expected date: 04/28/2023 - TSH WITH FREE T4 IF INDICATED; Future; Expected date: 04/28/2023 Abnormal glucose - CBC WITH WBC DIFFERENTIAL; Future; Expected date: 04/28/2023 - COMPREHENSIVE METABOLIC PANEL; Future; Expected date: 04/28/2023 - LIPID PANEL WITH DIRECT LDL IF TG IS HIGH; Future; Expected date: 04/28/2023 - HEMOGLOBIN A1C; Future; Expected date: 04/28/2023 Follow Up: Return in about 5 months (around 09/27/2023), or if symptoms worsen or fail to improve, for Follow-up. | For: Follow-up | Check-out note: Labs when possible. The total duration of this video telemedicine visit was 9 minutes. Yang Shah MD [facility] [address] [place] [address] documented in this encounter Plan of Treatment Upcoming Encounters Date Type Department Care Team (Late st Contact Info) Description 09/27/2023 4:40 PM EDT Office Visit [facility] [address] [place] [address] Yang Shah MD [address] [place] [address] Scheduled Orders Name Type Priority Associated Diagnoses Orde r Schedule CBC WITH WBC DIFFERENTIAL Lab Routine Anxiety state Menstruation, irregular Recurrent major depressive disorder, remission status unspecified (HCC) Thyroid nodule Dry mouth Polydipsia Polyuria Loss of weight Abnormal glucose Expected: 04/28/2023 (Approximate), Expires: 04/28/2024 COMPREHENSIVE METABOLIC PANEL Lab Routine Anxiety state Menstruation, irregular Recurrent major depressive disorder, remission status unspecified (HCC) Thyroid nodule Dry mouth Polydipsia Polyuria Loss of weight Abnormal glucose Expected: 04/28/2023 (Approximate), Expires: 04/28/2024 LIPID PANEL WITH DIRECT LDL IF TG IS HIGH Lab Routine Thyroid nodule Abnormal glucose Expected: 04/28/2023, Expires: 04/28/2024 TSH WITH FREE T4 IF INDICATED Lab Routine Anxiety state Menstruation, irregular Recurrent major depressive disorder, remission status unspecified (HCC) Thyroid nodule Dry mouth Polydipsia Polyuria Loss of weight Expected: 04/28/2023 (Approximate), Expires: 04/28/2024 HEMOGLOBIN A1C Lab Routine Dry mouth Polydipsia Polyuria Loss of weight Abnormal glucose Expected: 04/28/2023 (Approximate), Expires: 04/28/2024 LIPASE Lab Routine Dry mouth Polydipsia Polyuria Loss of weight Expected: 04/28/2023 (Approximate), Expires: 04/27/2024 URINALYSIS, REFLEX TO MICROSCOPIC Lab Routine Polydipsia Polyuria Expected: 04/28/2023, Expires: 04/28/2024 CULTURE, URINE, QUANTITATIVE Lab Routine Polydipsia Polyuria Expected: 04/28/2023, Expires: 04/28/2024 Health Maintenance Due Date Last Done Comments COVID-19 Vaccine (#1) 1999 HIV Screening 2014 Hepatitis C Screening 2017 Gonorrhea / Chlamydia Screen 10/08/2018 10/08/2017 Pap Smear 2020 Depression Screening 05/19/2020 05/19/2019 DTaP,Tdap,and Td Vaccines (7 - Td or Tdap) 08/28/2020 08/28/2010, 01/21/2004, 08/18/2000, Additional history exists Influenza Vaccine (FLU shot) (#1) 2023 04/23/2015, 06/28/2014, 06/28/2014, Additional history exists [...] Diagnosis Follow-up examination- Primary Unspecified follow-up examination Loss of weight Polydipsia Dry mouth Disturbance of salivary secretion Polyuria Chronic back pain, unspecified back location, unspecified back pain laterality History of vertebral fracture Personal history of traumatic fracture History of pelvic fracture Personal history of traumatic fracture History of tibial fracture Personal history of traumatic fracture Thyroid nodule Nontoxic uninodular goiter Fatty liver Other chronic nonalcoholic liver disease Menstruation, irregular Irregular menstrual cycle Recurrent major depressive disorder, remission status unspecified (HCC) Anxiety state Anxiety state, unspecified Abnormal glucose Other abnormal glucose documented in this encounter Care Teams Acoustic Intelligence Specialist Relationship Specialty Start Date End Date Yang Shah MD [address] [place] [address] PCP - General Family Medicine 03/27/19 documented as of this encounter"
--- OUTSIDE RECORDS SUMMARY | 2023-04-30 20:53 | External Medical Summary | Summary of Care ---
Author Name Unknown Organization [facility] Address [address] [place] [address] Phone [phone] Care Team Providers Care Due Diligence Coordinator Name Role Phone Yang Shah MD Primary Care Provider + Reason for Visit * Reason Comments Outpatient Testing Encounter Details Date Type Department Care Team (Late st Contact Info) Description 04/29/2023 2:00 PM EST Laboratory Laboratory Scenery [facility] [address] [place] [id number] [facility] Lab Scenery [address] [place] [address] [employer] Other*[id number]; Anxiety state; Menstruation, irregular; Recurrent major depressive disorder, remission status unspecified (HCC); Thyroid nodule; Dry mouth; Polydipsia; Polyuria; Loss of weight; Abnormal glucose Allergies No known active allergiesdocumented as of this encounter (statuses as of 04/29/2023) Medications No known medicationsdocumented as of this encounter (statuses as of 04/29/2023) Active Problems Problem Noted Date Diagnosed Date [...] as of this encounter (statuses as of 04/29/2023) Resolved Problems Problem Noted Date Diagnosed Date Resolved Date Food insecurity 01/06/2021 03/13/2022 Overview: Per [facility] Protocol Routine child health exam 05/02/2013 ADVANCE DIRECTIVE INFORMATION 08/07/2010 03/13/2022 Overview: Not applicable (under age of 18) documented as of this encounter (statuses as of 04/29/2023) Immunizations Name Administration Dates Next Due DTaP [...] on file documented as of this encounter Plan of Treatment Upcoming Encounters Date Type Department Care Team (Late st Contact Info) Description 09/27/2023 4:40 PM EDT Office Visit [facility] [place] [address] [place] [address] Yang Shah MD [address] [place] [address] Pending Results Name Type Priority Associated Diagnoses Date /Time MYCODE INITIAL ADULT Lab Routine MyCode Research Other*[id number] 04/29/2023 2:06 PM EST CBC WITH WBC DIFFERENTIAL Lab Routine Anxiety state Menstruation, irregular Recurrent major depressive disorder, remission status unspecified (HCC) Thyroid nodule Dry mouth Polydipsia Polyuria Loss of weight Abnormal glucose 04/29/2023 2:06 PM EST COMPREHENSIVE METABOLIC PANEL Lab Routine Anxiety state Menstruation, irregular Recurrent major depressive disorder, remission status unspecified (HCC) Thyroid nodule Dry mouth Polydipsia Polyuria Loss of weight Abnormal glucose 04/29/2023 2:06 PM EST LIPID PANEL WITH DIRECT LDL IF TG IS HIGH Lab Routine Thyroid nodule Abnormal glucose 04/29/2023 2:06 PM EST TSH WITH FREE T4 IF INDICATED Lab Routine Anxiety state Menstruation, irregular Recurrent major depressive disorder, remission status unspecified (HCC) Thyroid nodule Dry mouth Polydipsia Polyuria Loss of weight 04/29/2023 2:06 PM EST HEMOGLOBIN A1C Lab Routine Dry mouth Polydipsia Polyuria Loss of weight Abnormal glucose 04/29/2023 2:06 PM EST LIPASE Lab Routine Dry mouth Polydipsia Polyuria Loss of weight 04/29/2023 2:06 PM EST MYCODE INITIAL ADULT-PINK Lab Routine MyCode Research Other*[id number] 04/29/2023 2:06 PM EST MYCODE SST1 Lab Routine MyCode Research Other*[id number] 04/29/2023 2:06 PM EST MYCODE SST2 Lab Routine MyCode Research Other*[id number] 04/29/2023 2:06 PM EST CBC Lab Routine Anxiety state Menstruation, irregular Recurrent major depressive disorder, remission status unspecified (HCC) Thyroid nodule Dry mouth Polydipsia Polyuria Loss of weight Abnormal glucose 04/29/2023 2:06 PM EST DIFFERENTIAL, AUTOMATED Lab Routine Anxiety state Menstruation, irregular Recurrent major depressive disorder, remission status unspecified (HCC) Thyroid nodule Dry mouth Polydipsia Polyuria Loss of weight Abnormal glucose 04/29/2023 2:06 PM EST Health Maintenance Due Date Last Done Comments [...] as of this encounter Visit Diagnoses Diagnosis MyCode Research Other*[id number] Anxiety state Anxiety state, unspecified Menstruation, irregular Irregular menstrual cycle Recurrent major depressive disorder, remission status unspecified (HCC) Thyroid nodule Nontoxic uninodular goiter Dry mouth Disturbance of salivary secretion Polydipsia Polyuria Loss of weight Abnormal glucose Other abnormal glucose documented in this encounter Care Teams Due Diligence Coordinator Relationship Specialty Start Date End Date Yang Shah MD [address] [place] [address] PCP - General Family Medicine 03/27/19 documented as of this encounter
--- OUTSIDE RECORDS SUMMARY | 2023-04-30 20:53 | External Medical Summary ---
Author Name Unknown Address Unknown Organization K01:[facility] [place] - [address] [facility] [address] Laboratory Report Ordering Provider Test Date Status ZELALEM REED 04/29/2023 14:06:01 Final Observation Date Value Abnormality Reference (Units ) Status BUN 04/29/2023 14:06:01 8 6-20 (mg/dL) Final Creatinine 04/29/2023 14:06:01 0.5 0.5-1.0 (mg/dL) Final Glomerular filtration rate/1.73 sq M.predicted [Volume Rate/Area] in Serum, Plasma or Blood by Creatinine-based formula (CKD-EPI) 04/29/2023 14:06:01 >90 >=60 (mL/min) Final eGFR is calculated based on the CKD-EPI 2020 equation SODIUM 04/29/2023 14:06:01 127 Below low normal 135 -146 (mmol/L) Final Potassium 04/29/2023 14:06:01 4.2 3.5-5.1 (m mol/L) Final Cl 04/29/2023 14:06:01 88 Below low normal 98- 107 (mmol/L) Final CO2 04/29/2023 14:06:01 20 Below low normal 22- 32 (mmol/L) Final Anion gap 04/29/2023 14:06:01 19 Above high normal 7- 15 (mmol/L) Final Glucose 04/29/2023 14:06:01 623 Above up per panic limits 70-120 (mg/dL) Final Albumin 04/29/2023 14:06:01 4.5 3.8-5.0 (g /dL) Final AST (Aspartate aminotransferase) 04/29/2023 14:06:01 16 10-35 (U/L) Fin al Lipemia removed by ultracent rifugation. Alk Phos 04/29/2023 14:06:01 89 35-130 (U/ L) Final Bilirubin, Total 04/29/2023 14:06:01 <0.2 <=1 .2 (mg/dL) Final Calcium 04/29/2023 14:06:01 9.3 8.4-10.2 ( mg/dL) Final Protein 04/29/2023 14:06:01 6.9 6.0-8.3 (g /dL) Final ALT (Alanine aminotransferase) 04/29/2023 14:06:01 18 10-35 (U/L) Final Lipemia removed by ultracent rifugation. Performing Location [facility] [place] - [address] [facility] [address]
--- OUTSIDE RECORDS SUMMARY | 2023-04-30 20:53 | External Medical Summary ---
Author Name Unknown Address Unknown Organization K09:[facility] [place] [address] Laboratory Report Ordering Provider Test Date Status ZELALEM REED 04/29/2023 14:06:01 Final Observation Date Value Abnormality Reference (Units ) Status SYNC LEUKOCYTES IN BLOOD BY AUTOMATED COUNT 04/29/2023 14:06:01 9.78 4.00-10.80 (K/uL) Final Segs 04/29/2023 14:06:01 44.0 40.0-75.0 (%) Final Lymphs % 04/29/2023 14:06:01 40.6 18.0-42.0 (%) Final Monos 04/29/2023 14:06:01 9.0 1.0-11.0 (%) Final Eosinophils 04/29/2023 14:06:01 5.3 0.0-6.0 (%) Final Basos 04/29/2023 14:06:01 1.1 0.0-2.0 (%) Final Absolute Segs 04/29/2023 14:06:01 4.30 1.80-7.70 (K/uL) Final Lymphs, absolute 04/29/2023 14:06:01 3.97 1.00-4.80 (K/ul) Final Monos, Abs 04/29/2023 14:06:01 0.88 0.00-1.10 (K/uL) Final Eos, Abs 04/29/2023 14:06:01 0.52 0.00-0.70 (K/uL) Final Basos, Abs 04/29/2023 14:06:01 0.11 0.00-0.20 (K/uL) Final Performing Location [facility] [place] [address]
--- OUTSIDE RECORDS SUMMARY | 2023-04-30 20:53 | External Medical Summary | Summary of Care ---
Author Name Unknown Organization [facility] Address [address] [place] [address] Phone [phone] Care Team Providers Care Loans Officer Name Role Phone Yang Shah MD Primary Care Provider + Encounter Details Date Type Department Care Team Description 11/30/2022 Orders Only Outcomes Research Department [address] [place], [place] [id number] Tere Lazar CHRA [employer] Other*[id number] Allergies No known active allergiesdocumented as of this encounter (statuses as of 11/30/2022) Medications No known medicationsdocumented as of this encounter (statuses as of 11/30/2022) Active Problems Problem Noted Date Thyroid nodule [...] as of this encounter (statuses as of 11/30/2022) Resolved Problems Problem Noted Date Resolved Date Food insecurity 01/06/2021 03/13/2022 Overview: Per [facility] Protocol Routine child health exam 05/02/20132018 ADVANCE DIRECTIVE INFORMATION 08/07/2010 Overview: Not applicable (under age of 18) documented as of this encounter (statuses as of 11/30/2022) Immunizations Name Administration Dates Next Due DTaP [...] Encounters Date Type Specialty Care Team Description 04/26/2023 Office Visit Family Medicine Yang Shah MD [address] [place] [address] Scheduled Orders Name Type Priority Associated Diagnoses Orde r Schedule MYCODE INITIAL ADULT Lab Routine MyCode Research Other*[id number] Expected: 11/30/2022 (Approximate), Expires: 12/20/2023 Health Maintenance Due Date Last Done Comments [...] this encounter Visit Diagnoses Diagnosis MyCode Research Other*[id number] documented in this encounter Care Teams Loans Officer Relationship Specialty Start Date End Date Yang Shah MD [address] [facility] [place] [address] PCP - General Family Medicine 03/27/19 documented as of this encounter
--- OUTSIDE RECORDS SUMMARY | 2023-04-30 20:53 | External Medical Summary | Summary of Care ---
Author Name Unknown Organization [facility] Address [address] [place] [address] Phone [phone] Care Team Providers Care Refrigeration Mechanic Name Role Phone Yang Shah MD Primary Care Provider + Reason for Visit * Reason Onset Date Comments FYI 12/14/2022 Encounter Details Date Type Department Care Team Description 12/14/2022 Telephone [facility], [place] [address] [place] [address] Yang Shah MD [address] [place] [address] FYI (/) Allergies No known active allergiesdocumented as of this encounter (statuses as of 03/15/2023) Medications No known medicationsdocumented as of this encounter (statuses as of 03/15/2023) Active Problems Problem Noted Date Thyroid nodule [...] as of this encounter (statuses as of 03/15/2023) Resolved Problems Problem Noted Date Resolved Date Food insecurity 01/06/2021 03/13/2022 Overview: Per [facility] Protocol Routine child health exam 05/02/20132018 ADVANCE DIRECTIVE INFORMATION 08/07/2010 Overview: Not applicable (under age of 18) documented as of this encounter (statuses as of 03/15/2023) Immunizations Name Administration Dates Next Due DTaP [...] Miscellaneous Notes * Telephone Encounter - HALEIGH Jaramillo - 12/14/2022 2:14 PM EDT [facility] from [facility] called with regard to a subpoena for medical records requested over a year ago, transferred to Medical Records documented in this encounter Plan of Treatment Upcoming Encounters Date Type Specialty Care Team Description 04/26/2023 Office Visit Family [place] [address] Health Maintenance Due Date Last Done Comments [...] Not on filedocumented as of this encounter Care Teams Refrigeration Mechanic Relationship Specialty Start Date End Date Yang Shah MD [address] [place] [address] PCP - General Family Medicine 03/27/19 documented as of this encounter
[2023-04-30] MEDS ORDERED: INSULIN ASPART PER UNIT CHARGE SC SCH (21:00)
[2023-04-30] MEDS ORDERED: D5NSS + 20MEQ KCL 20 MEQ/1,000 ML BAG IV SCH (21:30)
[2023-05-01] MEDS ORDERED: INSULIN ASPART PER UNIT CHARGE SC SCH
[2023-05-01] MEDS: INSULIN ASPART PER UNIT CHARGE SC SCH ×9 (01:08→21:17)
[2023-05-01 01:29] LABS: Anion Gap 9 (3-11); Calcium 7.8 mg/dl (8.6-10.3); Carbon Dioxide 19 mmol/L (21-32); Chloride 106 mmol/L (98-107); Potassium 3.3 mmol/L (3.5-5.1); Sodium 134 mmol/L (136-145)
[2023-05-01 01:35] LABS: BUN Creatinine Ratio 11.1 (10-20); Blood Urea Nitrogen 6 mg/dl (6-23); Creatinine Clr Calc Pharmacy 169.4 ml/min; Est GFR (African American) > 150.0 ml/min; Glucose 247 mg/dl (70-99(Fasting))
[2023-05-01] MEDS ORDERED: POTASSIUM CHLORIDE CRTAB 20 MEQ TABCR PO STA (01:51)
[2023-05-01] MEDS ORDERED: POTASSIUM CHLORIDE 20 MEQ in D5W AND LACTATED RINGERS 1,000 ML IV ONE (02:15)
--- OUTSIDE RECORDS SUMMARY | 2023-05-01 03:34 | External Medical Summary | Summary of Care ---
Author Name Unknown Organization [facility] Address [address] [place] [address] Phone [phone] Care Team Providers Care Housekeeping Assistant Name Role Phone Yang Shah MD Primary Care Provider + Reason for Referral * Evaluate & Treat - Unlimited Visits (Within 10 days (routine)) - Pending Review Specialty Diagnoses / Procedures Referred By Jorden blake Referred To Contact Endocrinology/Metabolism / Endocrinology Diagnoses Other specified diabetes mellitus with other specified complication, unspecified whether long-term insulin use (HCC) Sarmad Gonzalez MD [address] [place] [address] Referral ID Status Reason Start Date Expiration Date Visits Requested Visits Authorized [id number] Pending Review Specialty Services Required 04/30/2023 999 999 Question Answer Referral Priority Within 10 days (routine) Where should this appointment be scheduled? [facility] For what condition is the patient being referred? Diabetes Mellitus For which diabetes condition are you referring? 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 [facility] Department: Primary Care Reason for Referral: DM Target A1c: < 7 Comments Pharmacist Medication Therapy Management: Minimum frequency patient should be seen in person for medication management: as appropriate per clinical condition and patient status By my signature, I understand that my patient Chace Hsu will have her medication therapy managed by the [facility] ([facility]) per established policies, procedures, and protocols. I also certify that this referral may serve as an initiation of service for the management of drug therapy in the above noted patient. [facility] providers will be responsible for scheduling patient visits, obtaining appropriate laboratory studies, and adjusting medication management therapy per patient's need, in addition to those roles spelled out in the clinic policy, procedures, and drug management protocols. I understand that the service provided by the [facility] is voluntary and have informed patient that they can refuse the service at their discretion. I am aware that the [facility] will provide me with a copy of the patient encounter via my [employer] I authorize the [facility] to carry out these activities on my behalf. I consider this program to be a necessary part of the patient's medical care. Sarmad Gonzalez MD Reason for Visit * Reason Onset Date Comments Emergency Department Follow-Up 04/30/2023 Encounter Details Date Type Department Care Team ([facility] st Contact Info) Description 04/30/2023 Telephone [facility] [address] [place] [address] Sarmad Gonzalez MD [address] [place] [address] Emergency Department Follow-Up Allergies No known active allergiesdocumented as of this encounter (statuses as of 04/30/2023) Medications No known medicationsdocumented as of this encounter (statuses as of 04/30/2023) Active Problems Problem Noted Date Diagnosed Date [...] as of this encounter (statuses as of 04/30/2023) Resolved Problems Problem Noted Date Diagnosed Date Resolved Date Food insecurity 01/06/2021 03/13/2022 Overview: Per [facility] Protocol Routine child health exam 05/02/2013 ADVANCE DIRECTIVE INFORMATION 08/07/2010 03/13/2022 Overview: Not applicable (under age of 18) documented as of this encounter (statuses as of 04/30/2023) Immunizations Name Administration Dates Next Due DTaP [...] encounter Miscellaneous Notes * Telephone Encounter - Kathy Gonzalez LPN - 04/30/2023 10:40 AM EST Contacted pt's PCP re: pt's BS of 623, acidotic state, and electrolytes being off. He is in agreement w/ Dr Turcios's recommendation for pt to go to the ED immediately. Contacted pt at . No answer. VM left explaining her status and directing her to proceed to the ED immediately as per direction of PCP and Dr Turcios. Also contacted pt's mother, Heidy Sue, at . Same VM left for same as she too did not answer. Dr Turcios aware of all. * Telephone Encounter - Maria G Turcios MD - 04/30/2023 8:38 AM EST This patient needs to go to ED. She has an elevated anion gap and new onset diabetes. * Telephone Encounter - Sarmad Gonzalez MD - 04/30/2023 8:22 AM EST Paged with critical glucose. Based on recent not likely an acute issue that requires ED intervention. Pt should be seen by MTM and Endo for further workup as presentation could be latent onset T1DM vs T2DM. Urgent MTM referral placed. A1c 17; falsely low Na due to glucose levels. Will route to PCP and nurse pool. Routing to PA in the office that is present today as well. Should likely be started on insulin given degree of A1c elevation however will defer management to primary team. documented in this encounter Plan of Treatment Upcoming Encounters Date Type Department Care Team (Late st Contact Info) Description 09/27/2023 4:40 PM EDT Office Visit [facility] [address] [place] [address] Yang Shah MD [address] [place] [address] Scheduled Referrals Name Type Priority Associated Diagnoses Orde r Schedule PHARMACIST MEDS THERAPY MGMT REFERRAL OP Referral Within 3 days (urgent) Other specified diabetes mellitus with other specified complication, unspecified whether long-term insulin use (HCC) Ordered: 04/30/2023 ENDOCRINOLOGY REFERRAL OP Referral Within 10 days (routine) Other specified diabetes mellitus with other specified complication, unspecified whether long-term insulin use (HCC) Ordered: 04/30/2023 Health Maintenance Due Date Last Done Comments [...] as of this encounter Visit Diagnoses Diagnosis Other specified diabetes mellitus with other specified complication, unspecified whether long-term insulin use (HCC)- Primary documented in this encounter Care Teams Housekeeping Assistant Relationship Specialty Start Date End Date Yang Shah MD [address] [place] [address] PCP - General Family Medicine 03/27/19 documented as of this encounter
--- OUTSIDE RECORDS SUMMARY | 2023-05-01 03:34 | External Medical Summary | Summary of Care ---
Author Name Unknown Organization [facility] Address [address] [place] [address] Phone [phone] Care Team Providers Care Chief Port Director Name Role Phone Yang Shah MD Primary Care Provider + Reason for Visit * Reason Onset Date Comments Abnormal Test Results 04/30/2023 NEEDS TO G O TO ER Encounter Details Date Type Department Care Team (Late st Contact Info) Description 04/30/2023 Telephone [facility], [place] [address] [place] [address] Maria G Turcios MD [address] [place] [address] Abnormal Test Results (NEEDS TO GO TO ER) Allergies No known active allergiesdocumented as of [...] Date Food insecurity 01/06/2021 03/13/2022 Overview: Per [facility] Protocol Routine child health exam 05/02/2013 [...] Encounter - Kathy Gonzalez LPN - 04/30/2023 10:[address] Turcios's message sent to PCP high priority. Also sent PCP a Teams message to him and VM left onhis personal, cell phone alerting him about Dr Turcios's message. * Telephone Encounter - Maria G Turcios MD - 04/30/2023 8:23 AM EST Please contact patient. Dr. Shah ordered lab work and she has a very high glucose at 623 and her electrolytes are off and she has acidosis. She needs to go to the Emergency Room immediately. New onset diabetes documented in this encounter Plan of Treatment Upcoming Encounters Date Type Department Care Team (Late st Contact Info) Description 09/27/2023 4:40 PM EDT Office Visit [facility] [address] [place] [address] Yang Shah MD [address] [place] [address] Health Maintenance Due Date Last Done Comments [...] filedocumented as of this encounter Care Teams Chief Port Director Relationship Specialty Start Date End Date Yang Shah MD [address] [place] [address] PCP - General Family Medicine 03/27/19 documented as of this encounter
--- OUTSIDE RECORDS SUMMARY | 2023-05-01 03:34 | External Medical Summary | Summary of Care ---
Author Name Unknown Organization [facility] Address [address] [place] [address] Phone [phone] Care Team Providers Care Chief Contract Officer Name Role Phone Yang Shah MD Primary Care Provider + Reason for Visit * Reason Onset Date Comments Abnormal Test Results 04/30/2023 NEEDS TO G O TO ER / pt returned call see te 04/30/23 Encounter Details Date Type Department Care Team (Late st Contact Info) Description 04/30/2023 Telephone [facility], [place] [address] [place] [address] Maria G Turcios MD [address] [place] [address] Abnormal Test Results (NEEDS TO GO TO ER /... Allergies No known active allergiesdocumented as of [...] Date Food insecurity 01/06/2021 03/13/2022 Overview: Per [facility] Protocol Routine child health exam 05/02/2013 [...] encounter Miscellaneous Notes * Telephone Encounter - Lois Lemus LPN - 04/30/2023 11:14 AM EST Pt called back, put mom on the phone for further questions. Explained to mom that the pt needs to get to there ER right away, due to recommendations of Covering Doctor. * Telephone Encounter - Bethany Rivas OSA - 04/30/2023 11:00 AM EST Pt returned call and stated she will go to ED as soon as she has time * Telephone Encounter - Kathy Gonzalez LPN [...] Description 09/27/2023 4:40 PM EDT Office Visit [facility] [place] [address] [place] [facility] [place] [address] Yang Shah MD [address] [place] [facility] [place] [address] Health Maintenance Due Date Last Done Comments [...] as of this encounter Care Teams Chief Contract Officer Relationship Specialty Start Date End Date Yang Shah MD [address] [facility] [address] PCP - General Family Medicine 03/27/19 documented as of this encounter
--- OUTSIDE RECORDS SUMMARY | 2023-05-01 03:34 | External Medical Summary | Summary of Care ---
Author Name Unknown Organization [facility] Address [address] [place] [address] Phone [phone] Care Team Providers Care Shrub Planter Name Role Phone Yang Shah MD Primary Care Provider + Reason for Referral * Evaluate & Treat - Unlimited Visits (Within 10 days (routine)) - Pending Review Specialty Diagnoses / Procedures Referred By Jorden blake Referred To Contact Endocrinology/Metabolism / Endocrinology Diagnoses Other specified diabetes mellitus with other specified complication, unspecified whether senior living insulin use (HCC) Sarmad Gonzalez MD [address] [place] [address] Referral ID Status Reason Start Date Expiration Date Visits Requested Visits Authorized [id number] Pending Review Specialty Services Required 04/30/2023 999 [...] mellitus with other specified complication, 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 [facility] Department: Primary Care Reason for Referral: DM Target A1c: < 7 Comments Pharmacist Medication Therapy Management: Minimum frequency patient should be seen in person for medication management: as appropriate per clinical condition and patient status By my signature, I understand that my patient Chace Hsu will have her medication therapy managed by the [facility] ([facility]) per established policies, procedures, and protocols. I also certify that this referral may serve as an initiation of service for the management of drug therapy in the above noted patient. [facility] providers will be responsible for scheduling patient visits, obtaining appropriate laboratory studies, and adjusting medication management therapy per patient's need, in addition to those roles spelled out in the clinic policy, procedures, and drug management protocols. I understand that the service provided by the [facility] is voluntary and have informed patient that they can refuse the service at their discretion. I am aware that the [facility] will provide me with a copy of the patient encounter via my [employer]. I authorize the [facility] to carry out these activities on my behalf. I consider this program to be a necessary part of the patient's medical care. Sarmad Gonzalez MD Reason for Visit * Reason Onset Date Comments Emergency Department Follow-Up 04/30/2023 Encounter Details Date Type Department Care Team ([facility] st Contact Info) Description 04/30/2023 Telephone [facility] [address] [place] [address] Sarmad Gonzalez MD [address] [place] [address] Emergency Department Follow-Up Allergies No known active [...] Date Food insecurity 01/06/2021 03/13/2022 Overview: Per [facility] Protocol Routine child health exam [...] Encounter - Kathy Gonzalez LPN - 04/30/2023 12:44 PM EST This encounter has been completed. Refer to notes from 04/30/2023. * Telephone Encounter - Kathy Gonzalez LPN [...] Description 09/27/2023 4:40 PM EDT Office Visit [facility] [address] [place] [address] Yang Shah MD [address] [place] [address] Scheduled Referrals Name Type Priority Associated Diagnoses Orde r Schedule PHARMACIST MEDS THERAPY MGMT REFERRAL OP Referral Within 3 days (urgent) Other specified diabetes mellitus with other specified complication, unspecified whether senior living insulin use (HCC) Ordered: 04/30/2023 ENDOCRINOLOGY REFERRAL OP Referral Within 10 days (routine) Other specified diabetes mellitus with other specified complication, unspecified whether senior living insulin use (HCC) Ordered: 04/30/2023 Health Maintenance [...] mellitus with other specified complication, 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
--- OUTSIDE RECORDS SUMMARY | 2023-05-01 03:34 | External Medical Summary | Summary of Care ---
Author Name Unknown Organization [facility] Address [address] [place] [address] Phone [phone] Care Team Providers Care Kitchen Help Handyman Name Role Phone Yang Shah MD Primary Care Provider + Reason for Visit * Reason Onset Date Comments Abnormal Test Results 04/30/2023 NEEDS TO G O TO ER Encounter Details Date Type Department Care Team (Late st Contact Info) Description 04/30/2023 Telephone [facility] [place] [address] [place] [address] Maria G Turcios MD [address] [place] [address] Abnormal Test Results (NEEDS TO [...] Date Food insecurity 01/06/2021 03/13/2022 Overview: Per [facility] Protocol Routine child health exam 05/02/2013 [...] Description 09/27/2023 4:40 PM EDT Office Visit [facility] [address] [place] [address] Yang Shah MD [address] [place] [address] Health Maintenance Due Date Last Done Comments [...] filedocumented as of this encounter Care Teams Kitchen Help Handyman Relationship Specialty Start Date End Date Yang Shah MD [address] [place] [address] PCP - General Family Medicine 03/27/19 documented as of this encounter
--- OUTSIDE RECORDS SUMMARY | 2023-05-01 03:34 | External Medical Summary | Summary of Care ---
Author Name Unknown Organization [facility] Address [address] [place] [address] Phone [phone] Care Team Providers Care News Editor Name Role Phone Yang Shah MD Primary Care Provider + Reason for Visit * Reason Onset Date Comments Abnormal Test Results 04/30/2023 NEEDS TO G O TO ER / pt returned call see te 04/30/23 Encounter Details Date Type Department Care Team (Late st Contact Info) Description 04/30/2023 Telephone [facility] [place] [address] [place] [address] Maria G Turcios MD [address] [place] [address] Abnormal Test Results (NEEDS TO GO TO [...] Date Food insecurity 01/06/2021 03/13/2022 Overview: Per [facility] Protocol Routine child health exam 05/02/2013 [...] encounter Miscellaneous Notes * Telephone Encounter - Bethany Rivas OSA [...] Description 09/27/2023 4:40 PM EDT Office Visit [facility] [address] [place] [address] Yang Shah MD [address] [place] [address] Health Maintenance Due Date Last Done Comments [...] filedocumented as of this encounter Care Teams News Editor Relationship Specialty Start Date End Date Yang Shah MD [address] [place] [address] PCP - General Family Medicine 03/27/19 documented as of this encounter
[2023-05-01 06:25] LABS: Anion Gap 4 (3-11); BUN Creatinine Ratio 11.9 (10-20); Blood Urea Nitrogen 5 mg/dl (6-23); Calcium 7.6 mg/dl (8.6-10.3); Carbon Dioxide 21 mmol/L (21-32); Chloride 108 mmol/L (98-107); Chol HDL Ratio 7.9 (0-5); Cholesterol 270 mg/dl (0-200); Creatinine Clr Calc Pharmacy 217.8 ml/min; Est GFR (African American) > 150.0 ml/min; Est GFR (Non-African American) 144.5 ml/min; Glucose 293 mg/dl (70-99(Fasting)); HDL Cholesterol 34 mg/dl; Potassium 3.8 mmol/L (3.5-5.1); Sodium 133 mmol/L (136-145); Triglycerides 664 mg/dl (0-150)
[2023-05-01 06:27] LABS: Hematocrit (blood only) 34.2 % (37.0-47.0); Hemoglobin 12.4 g/dl (12.0-16.0); Mean Corpuscular Hemoglobin 30.1 pg (25.0-34.0); Mean Corpuscular Hgb Conc 36.3 g/dL (32.0-36.0); Mean Platelet Volume 12.5 fL (9.4-12.4); Platelet Count 222 K/uL (130-400); RDW Coefficient of Variation 12.3 % (11.5-14.5); RDW Standard Deviation 37.2 fL (36.4-46.3); Red Blood Count 4.12 M/uL (4.20-5.40); White Blood Count 7.51 K/ul (4.8-10.8)
[2023-05-01 07:34] LABS: Estimated Average Glucose > 438 mg/dl; Hemoglobin A1C > 16.9 % (4.5-5.6)
[2023-05-01] MEDS ORDERED: SEVERE STRESS LEVEL ONE (07:56)
[2023-05-01] MEDS ORDERED: STAT IV Infusion **Titration per Protocol STA (07:56)
[2023-05-01] MEDS ORDERED: INSULIN PROTOCOL GOAL RANGE ONE (07:56)
[2023-05-01] MEDS: ATORVASTATIN 40 MG TAB PO SCH (07:58)
[2023-05-01] MEDS ORDERED: INSULIN HUMAN REGULAR IV BOLUS 3 UNITS in SYRINGE 0 ML IV ONE (08:00)
[2023-05-01] MEDS ORDERED: INSULIN REGULAR 250 UNITS in SODIUM CHLORIDE 0.9% 247.5 ML IV SCH (08:00)
--- NOTE | 2023-05-01 11:18 | Hospitalist Progress Note ---
Date of Service May 01, 2023 Assessment & Plan (1) Acute hyperglycemia: (2) DKA (diabetic ketoacidosis): (3) HLD (hyperlipidemia): (4) Hypertriglyceridemia: Plan 22-year-old female with PMHx significant for prediabetes diagnosed at age 8, thyroid nodule admitted with hyperglycemia. Acute hyperglycemia DKA (diabetic ketoacidosis) Pt sent over by PCP after bloodwork done outpatient noted elevated glucose levels Reports polydipsia and polyuria over the past month, diagnosis of prediabetes at age 8 In the ED, glucose 618, pH 7.32, bicarb 17 Na+ 126, corrected to 134 for hyperglycemia Hgba1c >16.9 Patient received 6 units IV insulin with improvement of glucose to 295 Originally treated with basal/bolus insulin, started on insulin drip AM 05/01 due to increasing glucose levels IVF with K+ Discontinue Insulin drip once glucose levels <200, switch to subcutaneous insulin at that time Glycemic pharmacy consult- appreciate recs and efforts healthcare educator consult- currently pending, not in over the weekend HLD (hyperlipidemia) Hypertriglyceridemia Outpatient labs showed triglycerides 1803, cholesterol 376, HDL 38, LDL 160 Repeat lipid panel 05/01 with decreased triglycerides of 664, cholesterol now 270 Continue Lipitor 40 mg Likely elevated in the setting of uncontrolled DMII Thyroid nodule Pt with Hx of thyroid nodule AM TSH and reflex T4 CODE STATUS: Full code Diet: DMII DVT PROPHYLAXIS: Ambulation as tolerated, SCDs Dispo: Discharge after assistance of hospital educator/CM for resources/supplies at home with this new dx Admission and Anticipated Discharge Date Admission Date: April 30, 2023 Subjective Pt seen in the AM, no family at bedside. Was just awakening from sleep. Notes in the last month or so, has been more thirsty than usual and urinating more than usual. States that she was given the diagnosis of "prediabetes" at age 8, family Hx on mom's side, unsure if Type I or Type II. Later called back to bedside as pt's mother was there. Mom with questions, all answered to the best ability of the provider. Mom especially wanted to gauge how long this was going on, notes that daughter does love sugar. States that they were driving to a wedding and had to stop multiple times for her to urinate. Surprised to hear hgba1c was >16 Review of Systems Review of Systems: All systems reviewed & are unremarkable except as noted in Subjective Physical Exam Physical Exam: General: Alert, oriented. No acute distress Skin: No noted rashes or bruises Psych: Appropriate mood and affect Neuro: No gross deficits HEENT: NC/AT Chest: Nontender to palpation. CV: RRR Resp: Breath sounds clear bilaterally, no increased effort of breathing. Abdomen: Soft, nontender, nondistended. Extremities: No edema in lower extremities bilaterally. Results & Data Results & Data Vital Signs (Past 12 Hours) Vital Signs Temp Pulse Pulse Resp BP Pulse Ox O2 Del Method 05/01/23 10:41 Room Air 05/01/23 10:19 84 05/01/23 07:36 37.1 C 87 14 99/67 L 97 Room Air 05/01/23 03:32 37.0 C 82 20 114/72 97 Room Air 05/01/23 00:14 37.0 C 76 20 114/69 97 Room Air (2) DKA (diabetic ketoacidosis) Diabetes mellitus complication detail: without coma Diabetes mellitus type: type 1 Qualified Code(s): E10.10 - Type 1 diabetes mellitus with ketoacidosis without coma
[2023-05-01] MEDS: NSS + 20MEQ KCL 20 MEQ/1,000 ML BAG IV SCH ×3 (11:32→21:16)
[2023-05-01] MEDS ORDERED: INSULIN ASPART PER UNIT CHARGE SC ONE (12:45)
[2023-05-01 13:30] LABS: Appearance Urine Clear (Clear); Bacteria Urine Automated Negative (Negative); Bilirubin Urine Negative (Negative); Blood Urine 3+ (Negative); Cast Urine Automated 0 /lpf (0-5); Color Urine Yellow; Epithelial Cell Urine Auto 20-30 /lpf (0-5); Glucose Urine UA 3+ (Negative); Ketones Urine 1+ (Negative); Leukocyte Esterase Urine Negative (Negative); Nitrite Urine Negative (Negative); Protein Urine Negative (Negative); RBC Urine Automated >30 /hpf (0-4); Specific Gravity Urine 1.027 (1.000-1.030); Urobilinogen Urine Negative (Negative); pH Urine 5.5 (4.5-7.5)
[2023-05-01] MEDS ORDERED: LANTUS PER UNIT CHARGE SC ONE (14:45)
--- NOTE | 2023-05-01 14:46 | Pharmacy Report ---
Pharmacy Glycemic Short Note 2 - Date of Service May 01, 2023 - Glycemic Short BSG Results (Last 24 hours): 04/30/23 04/30/23 04/30/23 19:20 19:39 21:21 Glucose 234 H POC Glucose 196 H 251 H 04/30/23 05/01/23 05/01/23 23:57 00:56 02:05 Glucose 247 H POC Glucose 255 H 249 H 05/01/23 05/01/23 05/01/23 03:20 04:54 05:49 Glucose 293 H POC Glucose 285 H 236 H 05/01/23 05/01/23 05/01/23 06:28 08:32 09:31 Glucose POC Glucose 302 H* 158 H 149 H 05/01/23 05/01/23 05/01/23 10:32 11:31 12:30 Glucose POC Glucose 146 H 96 89 05/01/23 05/01/23 13:06 13:53 Glucose POC Glucose 90 169 H OUTPATIENT ANTIDIABETIC REGIMEN: * N/A HbA1c: > 16.9% (04/30/23) ASSESSMENT: * LV is a 22 year old female who presented to ED on 04/30/23 upon request from PCP due to elevated blood sugar on outpatient lab work * Found to have mild DKA w/ anion gap of 13, carbon dioxide of 17 mmol/L, and VBG pH of 7.32 * Decision was made for SC insulin regimen > IV insulin infusion on admission * DKA resolved this morning, but blood sugars still elevated so decision was made to initiate insulin infusion to better determine patient's insulin req uirements. However, BSGs trended down quickly (89 mg/dL at ko) so will d/c gtt and start SC basal. * Lab work pending to better determine late onset type 1 vs. type 2 DM * Patient does report being prediabetic PLAN FOR INPATIENT GLYCEMIC CONTROL: * Hold outpatient oral diabetes medications * Basal insulin * Lantus 15 units SQ X 1 this afternoon (~0.2 unit/kg) * Bolus insulin * NovoLog per scale ACHS or Q6hrs while NPO * Goal Range: Low 110 mg/dL - High 140 mg/dL * Correction Factor: 25 mg/dL/unit * Nutritional / Prandial insulin per carb ratio of 1 unit per 8 grams CHO consumed
[2023-05-01 15:47] LABS: Alanine Aminotransferase 12 U/L (7-52); Albumin Globulin Ratio 1.3 (0.9-2); Albumin Level 3.1 gm/dl (3.4-5.0); Alkaline Phosphatase 51 U/L (34-104); Anion Gap 6 (3-11); Aspartate Aminotransferase 18 U/L (13-39); BUN Creatinine Ratio 11.6 (10-20); Bilirubin,Total 0.3 mg/dl (0.2-1.0); Blood Urea Nitrogen 5 mg/dl (6-23); Carbon Dioxide 21 mmol/L (21-32); Chloride 106 mmol/L (98-107); Creatinine Clr Calc Pharmacy 212.7 ml/min; Est GFR (African American) > 150.0 ml/min; Est GFR (Non-African American) 143.4 ml/min; Globulin 2.3 gm/dl (2.5-4.0); Glucose 190 mg/dl (70-99(Fasting)); Magnesium 1.4 mg/dl (1.7-2.4); Phosphorus 2.1 mg/dl (2.5-4.9); Potassium 3.9 mmol/L (3.5-5.1); Sodium 133 mmol/L (136-145); Total Protein 5.4 gm/dl (6.0-8.3)
[2023-05-01] MEDS ORDERED: SODIUM PHOSPHATE 3 MMOL/1 ML INFUSION IV STA (17:21)
[2023-05-01] MEDS: MAGNESIUM SULFATE / D5W 1 GM/100 ML BAG IV SCH ×2 (17:51→19:47)
[2023-05-01] MEDS ORDERED: SODIUM PHOSPHATE 24 MMOL in SODIUM CHLORIDE 0.9% 500 ML IV ONE (18:00)
[2023-05-02] MEDS: INSULIN ASPART PER UNIT CHARGE SC SCH ×6 (00:34→20:41)
[2023-05-02] MEDS: NSS + 20MEQ KCL 20 MEQ/1,000 ML BAG IV SCH ×5 (02:17→22:28)
[2023-05-02 06:28] LABS: Hematocrit (blood only) 34.7 % (37.0-47.0); Hemoglobin 12.5 g/dl (12.0-16.0); Mean Corpuscular Hemoglobin 30.6 pg (25.0-34.0); Mean Platelet Volume 12.3 fL (9.4-12.4); Platelet Count 209 K/uL (130-400); RDW Coefficient of Variation 12.8 % (11.5-14.5); RDW Standard Deviation 38.5 fL (36.4-46.3); Red Blood Count 4.08 M/uL (4.20-5.40); White Blood Count 7.24 K/ul (4.8-10.8)
[2023-05-02 06:47] LABS: Alanine Aminotransferase 12 U/L (7-52); Albumin Globulin Ratio 1.5 (0.9-2); Albumin Level 2.9 gm/dl (3.4-5.0); Alkaline Phosphatase 44 U/L (34-104); Anion Gap 3 (3-11); Aspartate Aminotransferase 17 U/L (13-39); BUN Creatinine Ratio 6.3 (10-20); Bilirubin,Total 0.4 mg/dl (0.2-1.0); Blood Urea Nitrogen 3 mg/dl (6-23); Calcium 7.4 mg/dl (8.6-10.3); Carbon Dioxide 23 mmol/L (21-32); Chloride 112 mmol/L (98-107); Creatinine Clr Calc Pharmacy 189.9 ml/min; Est GFR (African American) > 150.0 ml/min; Est GFR (Non-African American) 138.3 ml/min; Glucose 184 mg/dl (70-99(Fasting)); Magnesium 1.7 mg/dl (1.7-2.4); Phosphorus 2.9 mg/dl (2.5-4.9); Potassium 4.1 mmol/L (3.5-5.1); Sodium 138 mmol/L (136-145); Total Protein 4.9 gm/dl (6.0-8.3)
[2023-05-02 07:48] LABS: Basophils # (auto) 0.06 K/uL (0.00-0.20); Basophils % (auto) 0.8 %; Eosinophils % (auto) 6.9 %; Immature Granulocytes # (auto) 0.04 K/uL (0.01-0.20); Immature Granulocytes % (auto) 0.6 %; Lymphocytes # (auto) 3.74 K/uL (1.20-3.40); Lymphocytes % (auto) 51.7 %; Monocytes # (auto) 0.54 K/uL (0.11-0.59); Monocytes % (auto) 7.5 %; Neutrophils # (auto) 2.36 K/uL (1.40-6.50); Neutrophils % (auto) 32.5 %
[2023-05-02] MEDS: ATORVASTATIN 40 MG TAB PO SCH (08:46)
[2023-05-02] MEDS ORDERED: LANTUS PER UNIT CHARGE SC ONE (09:00)
--- NOTE | 2023-05-02 12:34 | Hospitalist Progress Note ---
Date of Service May 02, 2023 Assessment & Plan (1) Acute hyperglycemia: (2) DKA (diabetic ketoacidosis): (3) HLD (hyperlipidemia): (4) Hypertriglyceridemia: Plan 22-year-old female with PMHx significant for prediabetes diagnosed at age 8, thyroid nodule admitted with hyperglycemia. Acute hyperglycemia DKA (diabetic ketoacidosis) Pt sent over by PCP after bloodwork done outpatient noted elevated glucose levels Reports polydipsia and polyuria over the past month, diagnosis of prediabetes at age 8 In the ED, glucose 618, pH 7.32, bicarb 17 Na+ 126, corrected to 134 for hyperglycemia Hgba1c >16.9 Patient received 6 units IV insulin with improvement of glucose to 295 Originally treated with basal/bolus insulin, started on insulin drip AM 05/01 due to increasing glucose levels IVF with K+ Discontinued Insulin drip once glucose levels <200, switched to subcutaneous insulin at that time Glycemic pharmacy consult- appreciate recs and efforts catalog library assistant consult- currently pending, not in over the weekend, appreciate recs for discharge HLD (hyperlipidemia) Hypertriglyceridemia Outpatient labs showed triglycerides 1803, cholesterol 376, HDL 38, LDL 160 Repeat lipid panel 05/01 with decreased triglycerides of 664, cholesterol now 270 Continue Lipitor 40 mg Likely elevated in the setting of uncontrolled DMII Thyroid nodule Pt with Hx of thyroid nodule AM TSH and reflex T4 CODE STATUS: Full code Diet: DMII DVT PROPHYLAXIS: Ambulation as tolerated, SCDs Dispo: Discharge after assistance of camp counselor/CM for resources/supplies at home with this new dx Admission and Anticipated Discharge Date Admission Date: April 30, 2023 Subjective Pt seen in the AM. No acute events overnight and denied acute concerns. Review of Systems Review of Systems: All systems reviewed & are unremarkable except as noted in Subjective Physical Exam Physical Exam: General: Alert, oriented. No acute distress Skin: No noted rashes or bruises Psych: Appropriate mood and affect Neuro: No gross deficits HEENT: NC/AT Chest: Nontender to palpation. CV: RRR Resp: Breath sounds clear bilaterally, no increased effort of breathing. Abdomen: Soft, nontender, nondistended. Extremities: No edema in lower extremities bilaterally. Results & Data Results & Data Vital Signs (Past 12 Hours) Vital Signs Temp Pulse Pulse Resp BP Pulse Ox O2 Del Method 05/02/23 11:11 37.0 C 80 16 100/72 97 Room Air 05/02/23 07:42 36.6 C 77 16 123/81 97 Room Air 05/02/23 06:45 71 05/02/23 03:54 36.9 C 67 18 105/70 96 Room Air (2) DKA (diabetic ketoacidosis) Diabetes mellitus complication detail: without coma Diabetes mellitus type: type 1 Qualified Code(s): E10.10 - Type 1 diabetes mellitus with ketoacidosis without coma
--- NOTE | 2023-05-02 13:31 | Pharmacy Report ---
Pharmacy Glycemic Short Note 2 - Date of Service May 02, 2023 - Glycemic Short BSG Results (Last 24 hours): 05/01/23 05/01/23 05/01/23 13:53 14:37 14:52 Glucose 190 H POC Glucose 169 H 196 H 05/01/23 05/01/23 05/01/23 17:26 20:25 23:57 Glucose POC Glucose 218 H 235 H 98 05/02/23 05/02/23 05/02/23 03:37 05:34 07:52 Glucose 184 H POC Glucose 139 H 220 H 05/02/23 05/02/23 11:54 11:55 Glucose POC Glucose 307 H* 279 H OUTPATIENT ANTIDIABETIC REGIMEN: * N/A HbA1c: > 16.9% (04/30/23) ASSESSMENT: 05/02/23: * Insulin infusion transitioned to SC basal/bolus regimen yesterday * BSGs trended down overnight, but fasting BSG of 220 mg/dL this morning * Received 62 units of SC insulin in addition to insulin from IV infusion * Will increase basal and tighten Novolog today 05/01/23: * LV is a 22 year old female who presented to ED on 04/30/23 upon request from PCP due to elevated blood sugar on outpatient lab work * Found to have mild DKA w/ anion gap of 13, carbon dioxide of 17 mmol/L, and VBG pH of 7.32 * Decision was made for SC insulin regimen > IV insulin infusion on admission * DKA resolved this morning, but blood sugars still elevated so decision was made to initiate insulin infusion to better determine patient's insulin requirements. However, BSGs trended down quickly (89 mg/dL at ko) so will d/c gtt and start SC basal. * Lab work pending to better determine late onset type 1 vs. type 2 DM * Patient does report being prediabetic PLAN FOR INPATIENT GLYCEMIC CONTROL: * Hold outpatient oral diabetes medications * Basal insulin * Lantus 25 units SC x 1 this AM * Lantus 0-10 units SC HS * Reassess in AM, work towards once daily basal * Bolus insulin * NovoLog per scale ACHS or Q6hrs while NPO * Goal Range: Low 110 mg/dL - High 140 mg/dL * Correction Factor: 20 mg/dL/unit * Nutritional / Prandial insulin per carb ratio of 1 unit per 7 grams CHO consumed
[2023-05-02] MEDS ORDERED: LANTUS PER UNIT CHARGE SC SCH (21:00)
[2023-05-03] MEDS: INSULIN ASPART PER UNIT CHARGE SC SCH ×6 (01:58→18:17)
[2023-05-03] MEDS: NSS + 20MEQ KCL 20 MEQ/1,000 ML BAG IV SCH ×4 (03:30→16:45)
[2023-05-03 06:57] LABS: Hematocrit (blood only) 36.5 % (37.0-47.0); Hemoglobin 12.6 g/dl (12.0-16.0); Mean Corpuscular Hemoglobin 30.2 pg (25.0-34.0); Mean Corpuscular Hgb Conc 34.5 g/dL (32.0-36.0); Mean Corpuscular Volume 87.5 fL (80.0-100.0); Mean Platelet Volume 12.4 fL (9.4-12.4); Platelet Count 210 K/uL (130-400); RDW Standard Deviation 41.1 fL (36.4-46.3); Red Blood Count 4.17 M/uL (4.20-5.40); White Blood Count 6.86 K/ul (4.8-10.8)
[2023-05-03 07:20] LABS: Alanine Aminotransferase 16 U/L (7-52); Albumin Globulin Ratio 1.5 (0.9-2); Alkaline Phosphatase 44 U/L (34-104); Anion Gap 5 (3-11); Aspartate Aminotransferase 22 U/L (13-39); BUN Creatinine Ratio 7.1 (10-20); Bilirubin,Total 0.4 mg/dl (0.2-1.0); Blood Urea Nitrogen 4 mg/dl (6-23); Carbon Dioxide 24 mmol/L (21-32); Chloride 109 mmol/L (98-107); Creatinine Clr Calc Pharmacy 163.6 ml/min; Est GFR (African American) > 150.0 ml/min; Est GFR (Non-African American) 131.4 ml/min; Glucose 211 mg/dl (70-99(Fasting)); Magnesium 1.6 mg/dl (1.7-2.4); Phosphorus 2.9 mg/dl (2.5-4.9); Potassium 4.1 mmol/L (3.5-5.1); Sodium 138 mmol/L (136-145)
[2023-05-03 07:22] LABS: Basophils # (auto) 0.05 K/uL (0.00-0.20); Basophils % (auto) 0.7 %; Eosinophils # (auto) 0.49 K/uL (0.00-0.50); Eosinophils % (auto) 7.1 %; Immature Granulocytes # (auto) 0.04 K/uL (0.01-0.20); Immature Granulocytes % (auto) 0.6 %; Lymphocytes # (auto) 3.55 K/uL (1.20-3.40); Lymphocytes % (auto) 51.7 %; Monocytes # (auto) 0.47 K/uL (0.11-0.59); Monocytes % (auto) 6.9 %; Neutrophils # (auto) 2.26 K/uL (1.40-6.50)
[2023-05-03] MEDS: ATORVASTATIN 40 MG TAB PO SCH (08:06)
[2023-05-03] MEDS ORDERED: LANTUS PER UNIT CHARGE SC SCH (09:00)
[2023-05-03] MEDS ORDERED: MAGNESIUM OXIDE 400 MG TAB PO ONE (10:15)
--- NOTE | 2023-05-03 13:46 | Discharge Summary ---
Discharge Summary Date of Service May 03, 2023 Notes For Next Care Provider Unclear if pt is late onset DMI or DMII - recommend followup with Endocrinology for further evaluation Hgba1c >16 on admission, discharged with Insulin for treatment Medication Changes From Visit Started on: Insulin Glargine 30U qAM Aspart 9U with each meal Atorvastatin 40mg daily Admission HPI Per Admitting Provider 22-year-old female with PMH prediabetes, thyroid nodule, and other problems listed below who presents to the ED by referral of PCP for evaluation of hyperglycemia. History obtained from the patient and review of outpatient PCP records. Patient reports that over the past month, she has had increased thirst and increased urination. She asked for her PCP to check labs. Labs showed triglycerides 1803, cholesterol 376, HDL 38, LDL 160, glucose 623, HgbA1c 17. Aside from increased thirst and urination, patient denies any other symptoms. Reports she otherwise has been feeling well recently. No other recent illnesses, fevers, chills. She denies abdominal pain, nausea, vomiting, diarrhea. No dysuria. In the ED, patient is hemodynamically stable. Labs show VBG pH 7.32, bicarb 17, glucose 618. Patient was given 6 units IV insulin and IVF. She had improvement of glucose to 295. Admission Exam Per Admitting Provider General Appearance:Moderately built and nourished, no apparent distress Head: normocephalic, Atraumatic Eyes: normal inspection, EOMI Neck: supple, Trachea midline Respiratory/Chest: Normal breath sounds, CTA, No accessory muscle use Cardiovascular: S1, S2, No murmur Abdomen/GI:Soft, Non tender, Bowel sounds present Extremities/Musculoskeletal:normal inspection, no edema Neurologic/Psych:AAOX3, grossly no focal neurological deficits Skin: normal color, warm Principal Dx & Hospital Course #1 = Principal Diagnosis (1) Acute hyperglycemia: (2) DKA (diabetic ketoacidosis): (3) HLD (hyperlipidemia): (4) Hypertriglyceridemia: Plan 22-year-old female with PMHx significant for prediabetes diagnosed at age 8, thyroid nodule admitted with hyperglycemia. Acute hyperglycemia DKA (diabetic ketoacidosis) Pt sent over by PCP after bloodwork done outpatient noted elevated glucose levels Reports polydipsia and polyuria over the past month, diagnosis of prediabetes at age 8 In the ED, glucose 618, pH 7.32, bicarb 17 Na+ 126, corrected to 134 for hyperglycemia Hgba1c >16.9 Patient received 6 units IV insulin with improvement of glucose to 295 Originally treated with basal/bolus insulin, started on insulin drip AM 05/01 due to increasing glucose levels IVF with K+ Discontinued Insulin drip once glucose levels <200, switched to subcutaneous insulin at that time Glycemic pharmacy consult- appreciate recs and efforts clinical unit educator consult -discussed with pt day of discharge -discharged home with Insulin Glargine 30U qAM, Aspart 9U with each meal, needles and test strips Close pcp and Endocrinology follow up after discharge. HLD (hyperlipidemia) Hypertriglyceridemia Outpatient labs showed triglycerides 1803, cholesterol 376, HDL 38, LDL 160 Repeat lipid panel 05/01 with decreased triglycerides of 664, cholesterol now 270 Likely elevated in the setting of uncontrolled DM Continue Lipitor 40 mg PCP follow up Thyroid nodule Pt with Hx of thyroid nodule AM TSH and reflex T4 within normal limits PCP follow up Discharge Exam General: Alert, oriented. No acute distress Skin: No noted rashes or bruises Psych: Appropriate mood and affect Neuro: No gross deficits HEENT: NC/AT Chest: Nontender to palpation. CV: RRR Resp: Breath sounds clear bilaterally, no increased effort of breathing. Abdomen: Soft, nontender, nondistended. Extremities: No edema in lower extremities bilaterally. Updated Medication List Medication Instructions Recorded Confirmed Type atorvastatin 40 mg tablet 40 mg PO DAILY #30 tabs 05/03/23 Rx blood sugar diagnostic (OneTouch #100 ea 05/03/23 Rx Verio test strips) insulin aspart U-100 100 unit/mL See Rx Instructions .Route 05/03/23 Rx (3 mL) subcutaneous pen .COMPLEX #15 mL insulin glargine 100 unit/mL (3 30 unit (0.3 mL) subcut QAM #15 mL 05/03/23 Rx mL) subcutaneous pen (Basaglar KwikPen U-100 Insulin) pen needle, diabetic 32 gauge x #100 ea 05/03/23 Rx 5/32" (Pen Needle) insulin glargine 100 unit/mL (3 See Rx Instructions .Route 05/04/23 Rx mL) subcutaneous pen (Lantus .COMPLEX #9 mL Solostar U-100 Insulin) lancing device with lancets kit #1 ea 12/05/23 Rx (OneTouch Delica Plus Lancing Device kit) Hospital Stay Data Consultations 04/30/23 16:14 ED Decision to Admit Stat Discharge Instructions Given to Patient (Per Discharging Provider) Ms. Hsu, You were admitted with Diabetic ketoacidosis and we treated you with an insulin drip. Your symptoms got better and we are discharging you home with insulin for you to use subcutaneously. You met with the extension educator as well. Please use the insulin prescribed as directed. Please inject 30U of the long- acting or basal insulin Lantus every morning. Take the short acting insulin Aspart with meals, 9U each time. Please keep in mind these amounts might change once you follow up with your primary care provider/Endocrinology and they further monitor your glucose levels. We also started you on a medication called atorvastatin to help with your cholesterol levels. Weight loss will also help with keeping your glucose levels under control by trying to watch what you eat and also incorporating exercise into your daily routine. Please keep close follow up with your primary care provider and Endocrinology after discharge for continued close glucose monitoring and adjustment of your medications as needed. Best of luck to you and it was truly a pleasure taking care of you while you were here. Total Time Total Time Spent Total Time Spent (In Minutes): > 30 minutes
--- NOTE | 2023-05-03 15:08 | Pharmacy Report ---
Pharmacy Glycemic Short Note 2 - Date of Service May 03, 2023 - Glycemic Short BSG Results (Last 24 hours): 05/02/23 05/02/23 05/03/23 16:00 20:32 05:31 Glucose 211 H POC Glucose 127 H 133 H 05/03/23 05/03/23 05/03/23 05:54 08:06 12:35 Glucose POC Glucose 227 H 189 H 199 H OUTPATIENT ANTIDIABETIC REGIMEN: * N/A HbA1c: > 16.9% (04/30/23) ASSESSMENT: 05/03/23: * Chace received 61 units of insulin yesterday of which 25 were basal * Fasting BSG this AM slightly elevated, basal insulin increased by ~20% * Breakfast BSG not corrected this AM due to closeness of overnight check to AM BSG * Will tighten carbohydrate ratio slightly due to mealtime BSG elevations. 05/02/23: * Insulin infusion transitioned to SC basal/bolus regimen yesterday * BSGs trended down overnight, but fasting BSG of 220 mg/dL this morning * Received 62 units of SC insulin in addition to insulin from IV infusion * Will increase basal and tighten Novolog today 05/01/23: * LV is a 22 year old female who presented to ED on 04/30/23 upon request from PCP due to elevated blood sugar on outpatient lab work * Found to have mild DKA w/ anion gap of 13, carbon dioxide of 17 mmol/L, and VBG pH of 7.32 * Decision was made for SC insulin regimen > IV insulin infusion on admission * DKA resolved this morning, but blood sugars still elevated so decision was made to initiate insulin infusion to better determine patient's insulin requirements. However, BSGs trended down quickly (89 mg/dL at ko) so will d/c gtt and start SC basal. * Lab work pending to better determine late onset type 1 vs. type 2 DM * Patient does report being prediabetic PLAN FOR INPATIENT GLYCEMIC CONTROL: * Hold outpatient oral diabetes medications * Basal insulin * Lantus 30 units SC QAM * Bolus insulin * NovoLog per scale ACHS or Q6hrs while NPO * Goal Range: Low 110 mg/dL - High 140 mg/dL * Correction Factor: 20 mg/dL/unit * Nutritional / Prandial insulin per carb ratio of 1 unit per 6 grams CHO consumed
== END 2023-05-03 19:18 | disposition home or self-care (01) | DRG 639 ==
LOC: ED 11:27 → SUATTDRO 16:34 → EDINP 16:34 → 2N 20:30